=== PATIENT | female | born 1950 | race Caucasian/White ===

== ENCOUNTER → 2019-06-28 10:04 | Outpatient (BNVA) | payer MEDICARE, SELFPAY | PROVIDERS: Family Provider Internal Medicine; PCP Internal Medicine; Visit Provider Internal Medicine | DX: E11.9 Type 2 diabetes mellitus without complications (principal); E78.5 Hyperlipidemia, unspecified; I10 Essential (primary) hypertension; E55.9 Vitamin D deficiency, unspecified | CPT/HCPCS: 80053; 80061; 82306; 83036; 85025 ==

== ENCOUNTER → 2019-12-10 09:36 | Outpatient (BNVA) | payer MEDICARE, SELFPAY | PROVIDERS: Family Provider Internal Medicine; PCP Internal Medicine; Visit Provider Internal Medicine | DX: E11.65 Type 2 diabetes mellitus with hyperglycemia (principal); I10 Essential (primary) hypertension; E78.5 Hyperlipidemia, unspecified; E55.9 Vitamin D deficiency, unspecified | CPT/HCPCS: 36415; 80053; 82043; 83036; 84443; 85025 ==

== ENCOUNTER 2020-02-10 14:28 | Inpatient (IN) | payer MEDICARE, SELFPAY ==
[2020-02-10] VITALS (9 sets, daily range): BP systolic 124–143; BP diastolic 66–86; PULSE 60–95; RESP 16–20; TEMP 36.6–36.7; O2SAT 88–94; BMI 29.2
--- NOTE | 2020-02-10 15:14 | XR_ITS ---
WS: [id number] Portable AP upright chest, 02/10/2020 Clinical Data: SOB, COVID+ Comparison: PA and lateral chest, 01/27/2018. Findings: Bilateral patchy opacities are seen throughout both lungs. The density is greatest adjacent to the pleura. The heart is normal. There are no nodules or masses. No effusions are present. No pne umothorax is seen. The aortic arch shows tortuosity as does the descending aorta. XR/XR chest 1V portable [id number] Impression: Bilateral patchy opacities of the lungs most consistent with diffuse pneumonia.
--- NOTE | 2020-02-10 15:14 | ECG_ITS ---
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 Measurements Intervals [place] Rate: 75 P: 36 ME: 126 QRS: -8 QRSD: 88 T: 10 QT: 388 QTc: 434 Interpretive Statements SINUS RHYTHM NONSPECIFIC T-WAVE ABNORMALITY No previous ECG available for comparison Electronically Signed On 02-10-2020 18:21:41 CDT by Frederic Theodore M.D. [email or web address] medical [email or web address] [id number] f
--- NOTE | 2020-02-10 15:18 | ED_ITS ---
HPI - COVID General: Chief Complaint: COVID symptoms Stated Complaint: COVID +//IN COVID WR Time Seen by Provider: 02/10/20 14:45 Source: patient Mode of arrival: ambulatory Limitations: no limitations Triage information: Has fever, cough or shortness of breath . Exposure to COVID + person last 14 days History of Present Illness: HPI Narrative: Patient is a 69-year-old female who was recently diagnosed with COVID-19. The patient has complained of shortness of breath, severe weakness, loss of appetite, cough. She however thought she was getting better, but in her primary care provider's office today she was noted to be hypoxic with oxygen saturation about 84% on room air. She was also noticed to have some new abnormal lung sounds. She was therefore sent here to be seen and evaluated. MD complaint: known COVID positive COVID 19 common symptoms: positive non-productive cough, dyspnea and fatigue; negative fever(s), chills, productive cough, body aches, headache(s), throat pain, nausea or vomiting COVID Results: No Data to Display Review of Systems General: Reports: 10 or more systems reviewed and unremarkable except in HPI and below Const: Reports: fatigue and malaise; Denies: fever(s), chills or body aches Eyes: Denies: change in vision or blurry vision ENMT: Denies: throat pain, enlarged tonsils, odynophagia, hoarseness, mouth pain or swelling of lips/tongue Card: Denies: palpitations, irregular heart rhythm, edema or swelling of feet/ankles Resp: Reports: dyspnea and non-productive cough; Denies: productive cough GI: Denies: abdominal pain, nausea or vomiting : Denies: flank pain, difficulty voiding, dysuria, urinary frequency, urinary urgency or urinary hesitancy Musc: Denies: neck pain, back pain or extremity swelling Skin/Breast: Denies: rash, pruritus or erythema Neuro: Denies: headache(s), numbness in extremities or weakness in extremities Endo: Denies: polyuria, polydipsia or tired all the time Physical Exam Const: COMMON NORMALS: no acute distress, average body habitus, patient oriented x3, no limitations, healthy appearing, alert and well nourished HENMT: COMMON NORMALS: normocephalic, atraumatic and moist oral mucous membranes HEAD & SCALP: normocephalic and atraumatic Eye: COMMON NORMALS: Equal, round and reactive pupils present, EOMs intact bi laterally, conjunctivae normal and no scleral icterus CONJUNCTIVA: Yes conjunctivae normal PUPIL: Yes Equal, round and reactive pupils present Neck/C-Spine: COMMON NORMALS: no meningeal signs and no JVD Resp: COMMON NORMALS: normal respiratory effort, No retractions, No use of accessory muscles and percussion normal AUSCULTATION: rales bilateral and diffuse PERCUSSION: percussion normal Cardio: COMMON NORMALS: no JVD, regular rate, regular rhythm, S1 normal heart sound present, S2 normal heart sound present, No gallops present (Cardio), No clicks present (Cardio), No murmurs present (Cardio), No rub (Cardio) and Peripheral pulses 2+ throughout RATE: regular rate RHYTHM: regular rhythm HEART SOUNDS: S1 normal heart sound present and S2 normal heart sound present PERIPHERAL PULSES: Peripheral pulses 2+ throughout GI: COMMON NORMALS: Normal to inspection, nondistended, normoactive bowel sounds present, Soft to palpation, non-tender, No hepatosplenomegaly present, no masses and no bruits PALPATION: Yes Soft to palpation and Yes No he patosplenomegaly present Extremity: COMMON NORMALS: normal to inspection, full ROM, capillary refill normal, no calf tenderness and no pedal edema Neuro: COMMON NORMALS: patient oriented x3 SENSORIUM/ORIENTATION: Yes alert MENINGEAL SIGNS: Yes no meningeal signs Skin: COMMON NORMALS: no rashes or lesions noted, no wounds, turgor normal, no jaundice, no petechiae and no mottling GENERAL SKIN EXAM: no rashes or lesions noted and turgor normal Course ED course: Patient with hypoxia secondary to covid pneumonia. She oxygenated well on 3lpm of oxygen. She is admitted to further evaluation and management. Consultations: Consultation #1: Dr. Reagan, hospitalist. He kindly accepted the patient to his service. Time: 17:20 Vital Signs: Vital signs: Vital Signs Temperature 98.0 F 02/10/20 14:40 Pulse Rate 74 02/10/20 18:32 Respiratory Rate 20 H 02/10/20 18:32 Blood Pressure 133/78 02/10/20 18:32 Pulse Oximetry 92 02/10/20 18:32 MDM - COVID MDM Narrative Medical decision making narrative: Patient with COVID pneumonia and hypoxia. She is admitted to the hospital for further evaluation and management. Differential Diagnosis Differential diagnosis: Likely COVID 19 and pneumonia Medical Records Attestation: I reviewed the patient's medical records. Lab Data Attestation: I reviewed the patient's lab results. Result diagrams: 02/10/20 15:35 02/10/20 15:35 Labs: Lab Results 02/10/20 02/10/20 02/10/20 Range/Units 15:35 15:35 15:35 WBC 9.1 (4.0-10.0) 10^3/uL RBC 4.41 (4.1-5.3) 10^6/uL Hgb 12.8 (11.5-15.3) g/dL Hct 38.8 (37.0-47.0) % MCV 88.0 (81-99) fL MCH 29.0 (28.0-34.0) pg MCHC 33.0 (30.0-36.0) g/dL RDW 12.5 (12.1-15.1) % Plt Count 432 H (130-400) 10^3/cmm MPV 10.0 (7.4-10.4) fL Neut % (Auto) 72.5 % Lymph % (Auto) 16.8 % Traverse % (Auto) 9.7 % Eos % (Auto) 0.0 % Baso % (Auto) 0.2 % Neut # (Auto) 6.62 (1.8-7.7) 10^3/uL Lymph # (Auto) 1.5 (0.8-4.8) 10^3/uL Traverse # (Auto) 0.9 (0.2-0.9) 10^3/uL Eos # (Auto) 0.0 (0.0-0.8) 10^3/uL Baso # (Auto) 0.0 (0.0-0.1) 10^3/uL Nucleated RBC % (auto) 0 % Nucleated RBCs # 0.0 /100WBC PT 14.90 (12.1-14.9) SECONDS INR 1.14 (0.8-1.2) Fibrinogen 754 H (174-498) mg/dL D-Dimer 2.84 H (0-0.59) ug/mIFEU Sodium 132 L (136-145) mmol/L Potassium 3.9 (3.5-5.1) mmol/L Chloride 96 L (98-107) mmol/L Carbon Dioxide 23 (22-29) mmol/L Anion Gap 16.9 (5-19) BUN 8 (8-23) mg/dL Creatinine 0.4 L (0.5-0.9) mg/dL GFR Calculation 157.8 H (90-130) mL/min Glucose 186 H (65-115) mg/dL Calculated Osmolality 277 L (285-295) mOsm/kg Lactic Acid (0.5-2.2) mmol/L Calcium 8.7 (8.5-10.5) mg/dL Total Bilirubin 0.6 (0.15-1.2) mg/dL AST 21 (0-32) U/L ALT 18 (0-33) U/L Alkaline Phosphatase 76 (35-105) IU/L Lactate Dehydrogenase 271 H (135-214) U/L Creatine Kinase 29 (26-192) U/L Troponin T Gen 5 ng/L (0-10) ng/L C-Reactive Protein 117.4 H (0.0-4.9) mg/L Total Protein 6.5 L (6.6-8.7) g/dL Albumin 2.7 L (3.5-5.2) g/dL Globulin 3.8 (1.3-4.6) g/dL Influenza Type A Ag (Negative) Influenza Type B Ag (Negative) 02/10/20 02/10/20 02/10/20 Range/Units 15:35 15:35 16:35 WBC (4.0-10.0) 10^3/uL RBC (4.1-5.3) 10^6/uL Hgb (11.5-15.3) g/dL Hct (37.0-47.0) % MCV (81-99) fL MCH (28.0-34.0) pg MCHC (30.0-36.0) g/dL RDW (12.1-15.1) % Plt Count (130-400) 10^3/cmm MPV (7.4-10.4) fL Neut % (Auto) % Lymph % (Auto) % Traverse % (Auto) % Eos % (Auto) % Baso % (Auto) % Neut # (Auto) (1.8-7.7) 10^3/uL Lymph # (Auto) (0.8-4.8) 10^3/uL Traverse # (Auto) (0.2-0.9) 10^3/uL Eos # (Auto) (0.0-0.8) 10^3/uL Baso # (Auto) (0.0-0.1) 10^3/uL Nucleated RBC % (auto) % Nucleated RBCs # /100WBC PT (12.1-14.9) SECONDS INR (0.8-1.2) Fibrinogen (174-498) mg/dL D-Dimer (0-0.59) ug/mIFEU Sodium (136-145) mmol/L Potassium (3.5-5.1) mmol/L Chloride (98-107) mmol/L Carbon Dioxide (22-29) mmol/L Anion Gap (5-19) BUN (8-23) mg/dL Creatinine (0.5-0.9) mg/dL GFR Calculation (90-130) mL/min Glucose (65-115) mg/dL Calculated Osmolality (285-295) mOsm/kg Lactic Acid 1.7 (0.5-2.2) mmol/L Calcium (8.5-10.5) mg/dL Total Bilirubin (0.15-1.2) mg/dL AST (0-32) U/L ALT (0-33) U/L Alkaline Phosphatase (35-105) IU/L Lactate Dehydrogenase (135-214) U/L Creatine Kinase (26-192) U/L Troponin T Gen 5 ng/L 6 (0-10) ng/L C-Reactive Protein (0.0-4.9) mg/L Total Protein (6.6-8.7) g/dL Albumin (3.5-5.2) g/dL Globulin (1.3-4.6) g/dL Influenza Type A Ag Negative (Negative) Influenza Type B Ag Negative (Negative) COVID Results: No Data to Display Imaging Data CXR: Attestation: I personally reviewed and interpreted this imaging study as follows: Radiologist's impression: [address] [address] XRay Report Signed Patient: Adi Reynoso #: [id number] : 1950Acct#:[id number] Age/Sex: 69 / FADM Date: 02/10/20 Loc: ERRoom/Bed: Attending Dr: Ordering Provider/Ordering MD: Jin Lopez MD, [facility] Date of Service: 02/10/20 Procedure(s): XR chest 1V portable [id number] Accession Number(s): [id number] Report Number: [id number] WS: [id number] Portable AP upright chest, 02/10/2020 Clinical Data: SOB, COVID+ Comparison: PA and lateral chest, 01/27/2018. Findings: Bilateral patchy opacities are seen throughout both lungs. The density is greatest adjacent to the pleura. The heart is normal. There are no nodules or masses. No effusions are present. No pneumothorax is seen. The aortic arch shows tortuosity as does the descending aorta. XR/XR chest 1V portable [id number] Impression: Bilateral patchy opacities of the lungs most consistent with diffuse pneumonia. Dictated By:Anna Marley MD Signed By:Anna Marley MDSigned Date/Time:02/10/20 1554 DD/ 1552 Discharge Plan Discharge Patient Disposition: Admitted As Inpatient Admit Provider: Shay Reagan Clinical Impression: Pneumonia due to COVID-19 virus, Hypoxia Condition: Stable Interventions: ED Discharge Assessment Last Done: 02/10/20 18:32 ED Charges Last Done: 02/10/20 18:32 Discharge Date/Time: 02/10/20 18:51 Coding Level of Care Code ED Hotel Reservationist for Chg Fwd Exam Comprehensive
[2020-02-10 16:16] LABS: Basophils % 0.2 %; Hematocrit 38.8 % (37.0-47.0); Hemoglobin 12.8 g/dL (11.5-15.3); Lymphocytes # 1.5 10^3/uL (0.8-4.8); Lymphocytes % 16.8 %; Monocytes # 0.9 10^3/uL (0.2-0.9); Monocytes % 9.7 %; Neutrophils # 6.62 10^3/uL (1.8-7.7); Neutrophils % 72.5 %; Nucleated Red Blood Cells % 0 %; Platelet Count 432 10^3/cmm (130-400); Red Blood Count 4.41 10^6/uL (4.1-5.3); Red Cell Distribution Width 12.5 % (12.1-15.1); White Blood Count 9.1 10^3/uL (4.0-10.0)
[2020-02-10 16:36] LABS: Lactic Sepsis W/Reflex 1.7 mmol/L (0.5-2.2)
[2020-02-10 16:37] LABS: Alanine Aminotransferase 18 U/L (0-33); Albumin Level 2.7 g/dL (3.5-5.2); Alkaline Phosphatase 76 IU/L (35-105); Aspartate Amino Transferase 21 U/L (0-32); Blood Urea Nitrogen 8 mg/dL (8-23); C Reactive Protein 117.4 mg/L (0.0-4.9); Calcium 8.7 mg/dL (8.5-10.5); Carbon Dioxide 23 mmol/L (22-29); Chloride 96 mmol/L (98-107); Creatine Phosphokinase 29 U/L (26-192); Globulin 3.8 g/dL (1.3-4.6); Glomerular Filtration Rate 157.8 mL/min (90-130); Glucose 186 mg/dL (65-115); Osmolality Calculated 277 mOsm/kg (285-295); Sodium 132 mmol/L (136-145); Total Bilirubin 0.6 mg/dL (0.15-1.2); Total Protein 6.5 g/dL (6.6-8.7)
[2020-02-10 16:38] LABS: Troponin T (5th) Once 6 ng/L (0-10)
[2020-02-10 16:43] LABS: Fibrinogen 754 mg/dL (174-498); INR 1.14 (0.8-1.2)
[2020-02-10 16:47] LABS: D Dimer 2.84 ug/mIFEU (0-0.59)
[2020-02-10] MEDS: dexamethasone 4 mg/mL INJ 6 MG IVP (16:47)
[2020-02-10 16:48] LABS: Anion Gap 16.9 (5-19); Lactate Dehydrogenase 271 U/L (135-214); Potassium 3.9 mmol/L (3.5-5.1)
[2020-02-10 17:01] LABS: Influenza A by IFA Negative (Negative); Influenza B by IFA Negative (Negative)
--- NOTE | 2020-02-10 18:10 | CTR_ITS ---
PROCEDURE INFORMATION: Exam: CT Chest Without Contrast Exam date and time: 02/10/2020 6:27 PM Age: 69 years old Clinical indication: Shortness of breath; Prior surgery; Surgery type: Gb; Additional info: Worseing SOB TECHNIQUE: Imaging protocol: Computed tomography of the chest without contrast. Radiation optimization: All CT scans at this facility use at least one of these dose optimization techniques: automated exposure control; mA and/or kV adjustment per patient size (includes targeted exams where dose is matched to clinical indication); or iterative reconstruction. COMPARISON: CT chest con [id number] 09/17/2018 3:01 PM RADIATION DOSE METRICS: Total DLP (mGy-cm): 868.3 FINDINGS: Lungs: Dense peripheral ground-glass and airspace consolidations throughout both lungs. Calcified granuloma in the left lower lobe. Pleural space: Unremarkable. No pneumothorax. No pleural effusion. Heart: Unremarkable. No cardiomegaly. No pericardial effusion. Aorta: Unremarkable. No aortic aneurysm. Lymph nodes: Subcentimeter mediastinal lymph nodes are most likely reactive. Gallbladder and bile ducts: Cholecystectomy. Bile ducts are normal. Bones/joints: Mild scoliosis and degenerative changes of the spine. No compression fracture. Soft tissues: Unremarkable. CT/CT chest [facility] [address] IMPRESSION: 1. Peripheral multilobar pneumonia. This pattern is typical for COVID-19 pneumonia but can also be seen in influenza pneumonia and organizing pneumonia. Radiation Dose CTDIVOL = (mGy): DLP = 868.3 (mGy-cm)
--- NOTE | 2020-02-10 18:25 | PM.HP ---
Providers/Chief Complaint Admitting Physician: Shay Reagan MD Primary Care Provider: Sonali Bolton MD Chief Complaint: COVID + History of Present Illness Tess Reynoso is a 69 year old female with past medical history of diabetes and hypertension was diagnosed with Covid 19 10 days back, was receiving treatment from her primary care physician, she had kept her on dexamethasone oral, to which she did not responded well, her symptoms were progressively worsening, she was experiencing extreme fatigue, progressively worsening shortness of breath, severe headache, nausea, subjective fever, cough. She denies any chest pain, loss of taste, loss of smell, loss of appetite, any urinary complaint, constipation, diarrhea. In the ER: She was saturating well on 2 L oxygen, x-ray chest was done: Lactic acid:1.7, D-dimer: 2.84, baseline troponin: 6, Fibrinogen: 754, LDH 271. Influenza a and B: Negative. EKG: SINUS RHYTHM, with nonspecific ST-T changes. Review of Systems General: Reports: 10 or more systems reviewed and unremarkable except in HPI and below Const: Denies: change in appetite or diaphoresis Card: Denies: palpitations, edema, swelling of feet/ankles, dyspnea on exertion, orthopnea or leg pain with exertion Resp: Denies: wheezing or pain on inspiration GI: Denies: abdominal pain, diarrhea or constipation : Denies: flank pain Musc: Denies: back pain, extremity pain or extremity swelling Neuro: Denies: headache(s), difficulty walking or confusion Medications/Allergies Allergies Allergy/AdvReac Type Severity Reaction Status Date / Time povidone-iodine AdvReac Mild rash Verified 06/28/19 09:56 [From Betadine] soap [From Betadine] AdvReac Mild rash Verified 06/28/19 09:56 Vitals/I&O/Wt Last Vital Signs Temp 98.0 F 02/10/20 14:40 Pulse 95 02/10/20 17:30 Resp 16 02/10/20 14:40 BP 137/86 02/10/20 17:30 Pulse Ox 94 02/10/20 17:30 Weight last 48 hrs Weight 77.111 kg Physical Exam Const: COMMON NORMALS: patient oriented x3 HENMT: COMMON NORMALS: normocephalic, atraumatic, hearing grossly normal bilaterally and external ears normal HEAD & SCALP: normocephalic and atraumatic EXTERNAL EAR: Yes external ears normal Eye: COMMON NORMALS: no scleral icterus GENERAL EYE: appearance normal, both eyes and all related structures Chest: COMMONS NORMALS: normal inspection of the chest and normal palpation of entire chest wall CHEST: Yes Symmetrical chest wall rise Resp: COMMON NORMALS: normal respiratory effort, No retractions, No use of accessory muscles and clear to auscultation bilaterally EFFORT & INSPECTION: Yes symmetric chest movement OTHER: Bilateral crackles present in both lung almaraz, no wheezing no rhonchi Cardio: COMMON NORMALS: regular rate, regular rhythm, S1 normal heart sound present, S2 normal heart sound present, No gallops present (Cardio), No murmurs present (Cardio), No rub (Cardio) and Peripheral pulses 2+ throughout RATE: regular rate RHYTHM: regular rhythm HEART SOUNDS: S1 normal heart sound present and S2 normal heart sound present PERIPHERAL PULSES: Peripheral pulses 2+ throughout GI: COMMON NORMALS: Normal to inspection, nondistended, normoactive bowel sounds present, Soft to palpation, non-tender, No hepatosplenomegaly present and no masses AUSCULTATION: Yes normoactive bowel sounds PALPATION: Yes Soft to palpation and Yes No hepatosplenomegaly present RECTAL EXAM: deferred Extremity: COMMON NORMALS: no clubbing, cyanosis or edema and no pedal edema Neuro: COMMON NORMALS: patient oriented x3 Data : 02/10/20 15:35 02/10/20 15:35 Micro: Microbiology 02/10/20 15:35 Blood Culture - Preliminary Blood SPECIMEN COLLECTED 02/10/20 15:35 Blood Culture - Preliminary Blood SPECIMEN COLLECTED A&P Assessment and plan (1) Pneumonia due to COVID-19 virus: Continue Remdesevir Continue Dexamethasone Continue Van,Zosyn and Azith Trend Cytokine pedro inflammatory marker ( ESR,CRP,Ferritin,Ddimer,IL6 ) Currently not on full anticog. Continue Lovenox [address] chest without contrast Neb Status: Acute (2) Diabetes: MDSSI Monitor FSG Diabetic Diet Status: Acute (3) HTN (hypertension): Amlodipine 5 mg oral daily Status: Acute Additional A&P Information #Ac hypoxic R.F 2/2 COVID PNA with possible superimposed bacterial/Atypical PNA: Continue Remdesevir Continue Dexamethasone Continue Van,Zosyn and Azith Trend Cytokine pedro inflammatory marker ( ESR,CRP,Ferritin,Ddimer,IL6 ) Currently not on full anticog. Continue Lovenox [address] chest without contrast Neb Supplemental oxygen as needed maintain saturation greater than 90%. #DVT PPX:Lovenox 40 mg sc daily #Code Status :Full Code Attestations Medical Necessity Statement*: Patient is to be in hospital for management of COVID-19 pneumonia .A 2 midnight stays is expected. Coding Level of Care Code Acute Director Of Casework for g Fwd Diagnoses Pneumonia due to COVID-19 virus U07.1; J12.89 Diabetes E11.9 HTN (hypertension) I10
[2020-02-10] MEDS: vancomycin 1,000 MG in sodium chloride 0.9% 250 ML 250 MG IV ×2 (20:13→22:00)
[2020-02-10] MEDS: FUROsemide 10 mg/mL SDV 4mL 40 MG IVP (20:28)
[2020-02-10] MEDS: enoxaparin 40 mg/0.4 mL Syringe SUBCUT (20:29)
[2020-02-10] MEDS: pantoprazole 40 mg SDV IVP (20:29)
[2020-02-10] MEDS: albuterol 8 gm MDI 2 PUFF INHALATION (21:20)
[2020-02-10 21:29] LABS: Glucose Point of Care 368 mg/dL (70-110)
[2020-02-10] MEDS: azithromycin 500 MG in sodium chloride 0.9% 250 ML 250 MG IV (21:55)
[2020-02-11] VITALS (13 sets, daily range): BP systolic 128–150; BP diastolic 63–78; PULSE 62–81; RESP 16–26; TEMP 36.4–36.8; O2SAT 86–94
[2020-02-11] MEDS: piperacillin-tazobactam 3.375 GM in sodium chloride 0.9% (plus) 50 ML IV ×3 (00:46→16:56)
[2020-02-11 03:46] LABS: ABG PCO2 34.9 mmHg (35-45); ABG PH Result 7.48 (7.35-7.45); Alveolar-Arterial Oxygen Gradi 6.9 mmHg (5-10); Arterial Blood Gas Hematocrit 39.1 % (37-47); Base Excess ABG 2.3 mmol/L (-2.0-2.0); Blood Gas Allen Test Pos; Blood Gas Operator Identificat HARKR; Blood Gas Sample Site Brachial, right; Blood Gas Sample Type Arterial; Carboxyhemoglobin 0.8 %THgb (0.4-20.1); HCO3 ABG 25.6 mmol/L (22-26); HGB O2 Sat 87.3 % (95-100); Ionized Calcium Level - ABG 1.2 mmol/L (1.1-1.4); Methemoglobin 0.7 % (0.4-1.5); Oxygen Saturation ABG 88.7; Potassium Level - ABG 3.8 mmol/L (3.5-5.0); Total Hemoglobin 12.8 g/dL (12-16)
[2020-02-11 03:47] LABS: Oxygen Device ROOM AIR
[2020-02-11 05:27] LABS: Basophils % 0.2 %; Hematocrit 39.2 % (37.0-47.0); Hemoglobin 13.1 g/dL (11.5-15.3); Lymphocytes # 0.9 10^3/uL (0.8-4.8); Lymphocytes % 19.9 %; Mean Corpuscular HGB Conc 33.4 g/dL (30.0-36.0); Mean Corpuscular Hemoglobin 28.7 pg (28.0-34.0); Mean Corpuscular Volume 85.8 fL (81-99); Mean Platelet Volume 9.8 fL (7.4-10.4); Monocytes # 0.4 10^3/uL (0.2-0.9); Monocytes % 9.1 %; Neutrophils # 3.24 10^3/uL (1.8-7.7); Neutrophils % 69.9 %; Nucleated Red Blood Cells % 0 %; Platelet Count 507 10^3/cmm (130-400); Red Blood Count 4.57 10^6/uL (4.1-5.3); Red Cell Distribution Width 12.4 % (12.1-15.1); White Blood Count 4.6 10^3/uL (4.0-10.0)
[2020-02-11 05:34] LABS: Add Urine Microscopic? NO
[2020-02-11 06:13] LABS: NT Pro B Type Natriuretic Pept 526 pg/mL (0-125); Procalcitonin 0.07 ng/mL (0-0.5)
[2020-02-11 06:20] LABS: Bilirubin Urine Neg (Negative); Blood Urine Neg (Negative); Glucose Urine UA 4+ (Normal); Ketones Urine 1+ (Negative); Leukocyte Esterase Urine Negative (Negative); Nitrate Urine Negative (Negative); Protein Urine Neg (Negative); Urine Appearance Clear (CLEAR); Urine Color Yellow (Yellow); Urobilinogen Urine Norm (Negative); pH Urine 5 (5-7)
[2020-02-11 06:21] LABS: Alanine Aminotransferase 19 U/L (0-33); Albumin Level 2.9 g/dL (3.5-5.2); Alkaline Phosphatase 82 IU/L (35-105); Anion Gap 16.4 (5-19); Aspartate Amino Transferase 17 U/L (0-32); Blood Urea Nitrogen 12 mg/dL (8-23); Calcium 8.9 mg/dL (8.5-10.5); Carbon Dioxide 25 mmol/L (22-29); Chloride 99 mmol/L (98-107); Glomerular Filtration Rate 157.8 mL/min (90-130); Glucose 294 mg/dL (65-115); Magnesium 1.8 mg/dL (1.7-2.3); Osmolality Calculated 293 mOsm/kg (285-295); Phosphorus 3.5 mg/dL (2.5-4.5); Potassium 4.4 mmol/L (3.5-5.1); Sodium 136 mmol/L (136-145); Thyroid Stimulating Hormone 0.19 uIU/mL (0.27-4.20); Total Bilirubin 0.5 mg/dL (0.15-1.2); Total Protein 5.9 g/dL (6.6-8.7)
[2020-02-11 06:39] LABS: Glucose Point of Care 244 mg/dL (70-110)
[2020-02-11] MEDS: albuterol 8 gm MDI 2 PUFF INHALATION ×2 (09:34→20:27)
[2020-02-11] MEDS: FUROsemide 10 mg/mL SDV 4mL 40 MG IVP (10:12)
[2020-02-11] MEDS: vancomycin 1,000 MG in sodium chloride 0.9% 250 ML 250 MG IV ×2 (10:20→23:27)
[2020-02-11 11:22] LABS: Glucose Point of Care 392 mg/dL (70-110)
--- NOTE | 2020-02-11 11:40 | P.PN_ITS ---
Subjective Subjective: Interval history: Patient supplemental oxygen requirement has gone up. She is requiring 5 to 6 L of oxygen via nasal cannula to maintain a saturation greater then 90%. She has remained afebrile. R.R : 18-26 , H/R : 60- 82 , blood pressure is well controlled. Medications: Reviewed: Yes Vitals/I&O/Wt Last Vital Signs Temp 97.6 F 02/11/20 11:27 Pulse 71 02/11/20 11:27 Resp 18 02/11/20 11:27 BP 136/63 02/11/20 11:27 Pulse Ox 90 02/11/20 11:27 02/10/20 02/11/20 02/11/20 22:59 06:59 14:59 Intake Total 360 / 360 300 / 660 240 / 240 Output Total 900 / 900 1000 / 1000 Balance 360 / 360 -600 / -240 -760 / -760 Weight last 48 hrs Weight 78.67 kg Weight 77.111 kg Physical Exam Const: COMMON NORMALS: patient oriented x3 HENMT: COMMON NORMALS: normocephalic, atraumatic, hearing grossly normal bilaterally and external ears normal HEAD & SCALP: normocephalic and atraumatic EXTERNAL EAR: Yes external ears normal Eye: COMMON NORMALS: no scleral icterus GENERAL EYE: appearance normal, both eyes and all related structures Chest: COMMONS NORMALS: normal inspection of the chest and normal palpation of entire chest wall CHEST: Yes Symmetrical chest wall rise Resp: EFFORT & INSPECTION: Yes symmetric chest movement, Yes respiratory distress and Yes labored OTHER: Bilateral crackles present in both lung Rojas, slightly improved since yesterday Cardio: COMMON NORMALS: regular rate, regular rhythm, S1 normal heart sound present, S2 normal heart sound present, No gallops present (Cardio), No murmurs present (Cardio), No rub (Cardio) and Peripheral pulses 2+ throughout RATE: regular rate RHYTHM: regular rhythm HEART SOUNDS: S1 normal heart sound present and S2 normal heart sound present PERIPHERAL PULSES: Peripheral pulses 2+ throughout GI: COMMON NORMALS: Normal to inspection, nondistended, normoactive bowel sounds present, Soft to palpation, non-tender, No hepatosplenomegaly present and no masses AUSCULTATION: Yes normoactive bowel sounds PALPATION: Yes Soft to palpation and Yes No hepatosplenomegaly present RECTAL EXAM: deferred Extremity: COMMON NORMALS: no clubbing, cyanosis or edema and no pedal edema Neuro: COMMON NORMALS: patient oriented x3 Data : 02/12/20 04:50 02/12/20 04:50 Micro: Microbiology 02/10/20 15:35 Blood Culture - Preliminary Blood SPECIMEN COLLECTED 02/10/20 15:35 Blood Culture - Preliminary Blood SPECIMEN COLLECTED A&P Assessment and plan (1) Pneumonia due to COVID-19 virus: Status: Acute (2) Diabetes: MDSSI Monitor FSG Diabetic Diet Status: Acute (3) HTN (hypertension): Amlodipine 5 mg oral daily Status: Acute Additional A&P Information #Ac hypoxic R.F 2/ COVID PNA with possible superimposed bacterial/Atypical PNA: Patient oxygen requirement has continued to go up.She is currently on 5-6 L Oxygen via nc to maintain a saturation above 90 % as opposed to 3 L Yesterday. Continue Remdesevir (02/09--) Continue Dexamethasone (02/09----) Continue Van,Zosyn and Azith Trend Cytokine pedro inflammatory marker ( ESR,CRP,Ferritin,Ddimer,IL6 ) Currently not on full anticog.Continue Lovenox [address] chest without contrast: Presentation is consistent with typical COVID PNA ( Peripheral multilobar pneumonia. This pattern is typical for COVID-19 ) Continue Lasix 40 mg I.V daily I/O Charting Blood Culture : GPC 04/24 Neb Supplemental oxygen as needed maintain saturation greater than 90%. #DVT PPX:Lovenox 40 mg sc daily #Code Status :Full Code #Disposition: Home Attestations Medical Necessity Statement*: Patient needs to be in hospital for management of Covid pneumonia. Coding Level of Care Code Acute Nanoelectronics Engineer for [facility] Fwd Exam Comprehensive Diagnoses Pneumonia due to COVID-19 virus U07.1; J12.89 Diabetes E11.9 HTN (hypertension) I10
[2020-02-11 17:05] LABS: Glucose Point of Care 326 mg/dL (70-110)
[2020-02-11] MEDS: dexamethasone 4 mg/mL INJ 6 MG IVP (18:16)
[2020-02-11] MEDS: pantoprazole 40 mg SDV IVP (20:06)
[2020-02-11] MEDS: enoxaparin 40 mg/0.4 mL Syringe SUBCUT (20:06)
[2020-02-11] MEDS: FUROsemide 10 mg/mL SDV 2mL 20 MG IVP (20:06)
[2020-02-11 21:12] LABS: Glucose Point of Care 385 mg/dL (70-110)
[2020-02-11] MEDS: azithromycin 500 MG in sodium chloride 0.9% 250 ML 250 MG IV (21:46)
[2020-02-11] MEDS: insulin glargine 100 units/1 mL 10 UNIT SUBCUT (21:46)
[2020-02-11 22:23] LABS: Vancomycin Trough 5.2 ug/mL (10-15)
[2020-02-12] VITALS (123 sets, daily range): BP systolic 120–169; BP diastolic 65–96; PULSE 55–115; RESP 13–30; TEMP 36.5–37.7; O2SAT 84–99
[2020-02-12] MEDS: piperacillin-tazobactam 3.375 GM in sodium chloride 0.9% (plus) 50 ML IV ×3 (00:19→16:48)
[2020-02-12 05:38] LABS: Basophils % 0.1 %; Hematocrit 39.7 % (37.0-47.0); Hemoglobin 13.2 g/dL (11.5-15.3); Lymphocytes # 1.5 10^3/uL (0.8-4.8); Lymphocytes % 16.9 %; Mean Corpuscular HGB Conc 33.2 g/dL (30.0-36.0); Mean Corpuscular Hemoglobin 28.9 pg (28.0-34.0); Mean Corpuscular Volume 87.1 fL (81-99); Mean Platelet Volume 9.6 fL (7.4-10.4); Monocytes # 0.4 10^3/uL (0.2-0.9); Monocytes % 4.7 %; Neutrophils # 6.69 10^3/uL (1.8-7.7); Neutrophils % 77.7 %; Nucleated Red Blood Cells % 0 %; Platelet Count 598 10^3/cmm (130-400); Red Blood Count 4.56 10^6/uL (4.1-5.3); Red Cell Distribution Width 12.5 % (12.1-15.1); White Blood Count 8.6 10^3/uL (4.0-10.0)
[2020-02-12 05:58] LABS: C Reactive Protein 58.9 mg/L (0.0-4.9); Ferritin 692 ng/mL (15-150)
[2020-02-12 06:00] LABS: Alanine Aminotransferase 19 U/L (0-33); Albumin Level 3.1 g/dL (3.5-5.2); Alkaline Phosphatase 80 IU/L (35-105); Blood Urea Nitrogen 14 mg/dL (8-23); Calcium 8.8 mg/dL (8.5-10.5); Carbon Dioxide 27 mmol/L (22-29); Chloride 99 mmol/L (98-107); Globulin 3.2 g/dL (1.3-4.6); Glucose 285 mg/dL (65-115); Magnesium 1.9 mg/dL (1.7-2.3); Osmolality Calculated 293 mOsm/kg (285-295); Phosphorus 3.5 mg/dL (2.5-4.5); Sodium 136 mmol/L (136-145); Total Bilirubin 0.4 mg/dL (0.15-1.2); Total Protein 6.3 g/dL (6.6-8.7)
[2020-02-12 06:23] LABS: Anion Gap 14.6 (5-19); Aspartate Amino Transferase 18 U/L (0-32); Potassium 4.6 mmol/L (3.5-5.1)
[2020-02-12 06:39] LABS: Glucose Point of Care 267 mg/dL (70-110)
[2020-02-12 07:20] LABS: Fibrinogen 582 mg/dL (174-498)
[2020-02-12 07:24] LABS: D Dimer 1.19 ug/mIFEU (0-0.59)
[2020-02-12] MEDS: vancomycin 1,000 MG in sodium chloride 0.9% 250 ML 250 MG IV ×3 (08:07→23:49)
[2020-02-12 08:55] LABS: ABG PCO2 34.3 mmHg (35-45); ABG PH Result 7.51 (7.35-7.45); Alveolar-Arterial Oxygen Gradi 32.3 mmHg (5-10); Arterial Blood Gas Hematocrit 39.8 % (37-47); Base Excess ABG 4.7 mmol/L (-2.0-2.0); Blood Gas Allen Test Pos; Blood Gas Sample Site Radial, left; Blood Gas Sample Type Arterial; Carboxyhemoglobin 0.8 %THgb (0.4-20.1); HCO3 ABG 27.6 mmol/L (22-26); HGB O2 Sat 88.7 % (95-100); Ionized Calcium Level - ABG 1.2 mmol/L (1.1-1.4); Methemoglobin 0.7 % (0.4-1.5); Oxygen Device NC; Oxygen Saturation ABG 90.1; PO2 ABG 53.1 mmHg (80.0-100.0); Potassium Level - ABG 3.4 mmol/L (3.5-5.0)
[2020-02-12] MEDS: albuterol 8 gm MDI 2 PUFF INHALATION (09:43)
[2020-02-12] MEDS: FUROsemide 10 mg/mL SDV 4mL 40 MG IVP (11:05)
[2020-02-12] MEDS: benzonatate 100 mg Capsule PO (11:06)
[2020-02-12] MEDS: guaiFENesin-dextromethorphan UDC 10 mL 5 ML PO (11:08)
[2020-02-12 11:20] LABS: Glucose Point of Care 296 mg/dL (70-110)
--- NOTE | 2020-02-12 12:50 | PC.NURSE ---
NOTED THAT EVEN AT REST 50% OXYGEN AND 45 LITER FLOW WAS NOT SUFFICIENT TO KEEP PATIENTS SATS HIGHER THAN 85. CURRENTLY AT 65% AND 55 LITERS WITH OCCASSIONAL DROP TO 87 WITH ACTIVITY, WITNESSED THIS AND ORDERED A MATOS TO DECREASE HER DEMAND.
[2020-02-12 16:20] LABS: Glucose Point of Care 396 mg/dL (70-110)
[2020-02-12] MEDS: dexamethasone 4 mg/mL INJ 6 MG IVP (16:22)
[2020-02-12] MEDS: pantoprazole 40 mg SDV IVP (16:47)
[2020-02-12 17:42] LABS: Partial Thromboplastin Time 47.3 SECONDS (23.9-36.7)
[2020-02-12] MEDS: heparin drip 25,000 UNIT/500 ML PREMIX 24 UNIT IV (18:01)
[2020-02-12] MEDS: heparin 5,000 unit/mL INJ 1 mL IV (18:02)
--- NOTE | 2020-02-12 18:33 | PC.NURSE ---
RIGHT AC LINE WHERE HEPARIN WAS INFUSING APPEARED SWOLLEN AND WAS DIFFICULT TO FLUSH, D/ED LINE AND IT WAS INTACT. NEW SITE IN LEFT AC/FA AREA #20 STARTED ON THIRD STICK. GREAT BLOOD RETURN. CURRENT SATS ARE 96 TO 98 SO PATIENT WAS SWITCHED DOWN TO 50 50.
[2020-02-12 21:15] LABS: Glucose Point of Care 384 mg/dL (70-110)
[2020-02-12] MEDS: azithromycin 500 mg SDV (21:15)
[2020-02-12] MEDS: azithromycin 500 MG in sodium chloride 0.9% 250 ML 150 MG IV (21:20)
--- NOTE | 2020-02-12 21:55 | PM.PN ---
Subjective Subjective: Interval history: Patient was extremely short of breath this morning.Her supplemental oxygen requirement has gone up. Other vitals and labs have been reviewed. Medications: Reviewed: Yes Vitals/I&O/Wt Last Vital Signs Temp 97.7 F 02/12/20 16:00 Pulse 62 02/12/20 21:42 Resp 18 02/12/20 21:42 BP 159/72 02/12/20 18:35 Pulse Ox 97 02/12/20 21:42 02/12/20 02/12/20 02/12/20 06:59 14:59 22:59 Intake Total 410 / 1910 800 / 800 900 / 1700 Output Total 500 / 2900 1200 / 1200 1300 / 2500 Balance -90 / -990 -400 / -400 -400 / -800 Weight last 48 hrs Weight 78.562 kg Weight 78.67 kg Physical Exam Const: COMMON NORMALS: patient oriented x3 HENMT: COMMON NORMALS: normocephalic, atraumatic, hearing grossly normal bilaterally and external ears normal HEAD & SCALP: normocephalic and atraumatic EXTERNAL EAR: Yes external ears normal Eye: COMMON NORMALS: no scleral icterus GENERAL EYE: appearance normal, both eyes and all related structures Resp: EFFORT & INSPECTION: Yes symmetric chest movement, Yes tachypneic, Yes respiratory distress and Yes labored OTHER: Diffuse b/l Crackles Present in both Lung Sher. Cardio: COMMON NORMALS: regular rate, regular rhythm, S1 normal heart sound present, S2 normal heart sound present, No gallops present (Cardio), No murmurs present (Cardio), No rub (Cardio) and Peripheral pulses 2+ throughout RATE: regular rate RHYTHM: regular rhythm HEART SOUNDS: S1 normal heart sound present and S2 normal heart sound present PERIPHERAL PULSES: Peripheral pulses 2+ throughout GI: COMMON NORMALS: Normal to inspection, nondistended, normoactive bowel sounds present, Soft to palpation, non-tender, No hepatosplenomegaly present and no masses AUSCULTATION: Yes normoactive bowel sounds PALPATION: Yes Soft to palpation and Yes No hepatosplenomegaly present RECTAL EXAM: deferred Extremity: COMMON NORMALS: no clubbing, cyanosis or edema and no pedal edema Neuro: COMMON NORMALS: patient oriented x3 Urinary Catheter Management^: Kathleen: Cath Placed During This Visit: yes Urinary Catheter Date of Insertion: 02/12/20 Urinary Catheter Time of Insertion: 12:49 Data : 02/12/20 04:50 02/12/20 04:50 Micro: Microbiology 02/11/20 04:18 Urine Culture - Preliminary Urine,Clean Catch A&P Assessment and plan (1) Pneumonia due to COVID-19 virus: Status: Acute (2) Diabetes: MDSSI Monitor FSG Diabetic Diet Status: Acute (3) HTN (hypertension): Amlodipine 5 mg oral daily Status: Acute Additional A&P Information #Ac hypoxic R.F 2/ COVID PNA with possible superimposed bacterial/Atypical PNA: Patient oxygen requirement has continued to go up.She was started on HHFONC 60 % fio2 and 40L Continue Remdesevir (02/09--) Continue Dexamethasone (02/09----) On Heparin Drip Started on 02/12 Continue Van,Zosyn and Azith Trend Cytokine pedro inflammatory marker ( ESR,CRP,Ferritin,Ddimer,IL6 ) CT chest without contrast: Presentation is consistent with typical COVID PNA ( Peripheral multilobar pneumonia. 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
[2020-02-12] MEDS: insulin glargine 100 units/1 mL 10 UNIT SUBCUT (22:12)
[2020-02-12] MEDS: ipratropium-albuterol 3 mL Neb INHALATION (22:16)
[2020-02-13] VITALS (77 sets, daily range): BP systolic 90–163; BP diastolic 48–103; PULSE 47–90; RESP 7–35; TEMP 36.2–36.9; O2SAT 85–98
[2020-02-13 01:54] LABS: Partial Thromboplastin Time 120.3 SECONDS (23.9-36.7)
[2020-02-13] MEDS: piperacillin-tazobactam 3.375 GM in sodium chloride 0.9% (plus) 50 ML IV ×3 (02:16→18:30)
[2020-02-13 05:41] LABS: Basophils % 0.2 %; Hematocrit 40.5 % (37.0-47.0); Hemoglobin 13.2 g/dL (11.5-15.3); Lymphocytes # 2.1 10^3/uL (0.8-4.8); Lymphocytes % 18.3 %; Mean Corpuscular HGB Conc 32.6 g/dL (30.0-36.0); Mean Corpuscular Hemoglobin 28.8 pg (28.0-34.0); Mean Corpuscular Volume 88.4 fL (81-99); Mean Platelet Volume 9.5 fL (7.4-10.4); Monocytes # 0.7 10^3/uL (0.2-0.9); Monocytes % 5.7 %; Neutrophils # 8.73 10^3/uL (1.8-7.7); Neutrophils % 74.9 %; Nucleated Red Blood Cells % 0 %; Platelet Count 623 10^3/cmm (130-400); Red Blood Count 4.58 10^6/uL (4.1-5.3); Red Cell Distribution Width 12.4 % (12.1-15.1); White Blood Count 11.7 10^3/uL (4.0-10.0)
[2020-02-13 06:20] LABS: Alanine Aminotransferase 18 U/L (0-33); Albumin Level 2.9 g/dL (3.5-5.2); Alkaline Phosphatase 73 IU/L (35-105); Anion Gap 13.7 (5-19); Aspartate Amino Transferase 14 U/L (0-32); Blood Urea Nitrogen 13 mg/dL (8-23); Calcium 9.2 mg/dL (8.5-10.5); Carbon Dioxide 28 mmol/L (22-29); Chloride 101 mmol/L (98-107); Globulin 3.7 g/dL (1.3-4.6); Glomerular Filtration Rate 98.8 mL/min (90-130); Glucose 213 mg/dL (65-115); Magnesium 1.9 mg/dL (1.7-2.3); Osmolality Calculated 294 mOsm/kg (285-295); Phosphorus 2.4 mg/dL (2.5-4.5); Potassium 3.7 mmol/L (3.5-5.1); Sodium 139 mmol/L (136-145); Total Bilirubin 0.3 mg/dL (0.15-1.2); Total Protein 6.6 g/dL (6.6-8.7)
[2020-02-13] MEDS: heparin drip 25,000 UNIT/500 ML PREMIX 19 UNIT IV (06:42)
[2020-02-13] MEDS: vancomycin 1,000 MG in sodium chloride 0.9% 250 ML 250 MG IV ×3 (07:16→22:03)
[2020-02-13] MEDS: ipratropium-albuterol 3 mL Neb INHALATION ×2 (08:03→11:09)
[2020-02-13] MEDS: budesonide 0.5 mg/2 mL Neb INHALATION (08:06)
[2020-02-13 08:10] LABS: Glucose Point of Care 156 mg/dL (70-110)
[2020-02-13 08:32] LABS: Partial Thromboplastin Time 96.9 SECONDS (23.9-36.7)
[2020-02-13] MEDS: amlodipine 5 mg Tablet PO (09:02)
--- NOTE | 2020-02-13 09:19 | PC.NURSE ---
see heparin dosing chart for infusion rates/titrations.
[2020-02-13] MEDS: FUROsemide 10 mg/mL SDV 4mL 40 MG IVP (11:16)
[2020-02-13 11:54] LABS: Glucose Point of Care 283 mg/dL (70-110)
--- NOTE | 2020-02-13 12:59 | XRR_ITS ---
PROCEDURE INFORMATION: Exam: XR Chest, 1 View Exam date and time: 02/13/2020 2:06 PM Age: 69 years old Clinical indication: Device placement; Picc; Additional info: Picc placement (will call to vicu when ready) TECHNIQUE: Imaging protocol: XR of the chest Views: 1 view. COMPARISON: CT chest wo con [id number] 02/10/2020 7:23 PM FINDINGS: Tubes, catheters and devices: A right PICC line extends into the SVC. Lungs: Interstitial densities are seen in the bilateral upper lobes consistent with chronic interstitial lung disease Pleural space: Unremarkable. No pleural effusion. No pneumothorax. Heart/Mediastinum: Unremarkable. No cardiomegaly. Bones/joints: Unremarkable. XR/XR chest 1V portable [id number] IMPRESSION: 1. Chronic interstitial lung disease in the bilateral upper lobes 2. Right side PICC line in the proximal SVC 3. Otherwise negative examination
--- NOTE | 2020-02-13 14:27 | DCPLANNER ---
Pt is now on highflow 02, chose not to try to talk with her or family about the IM. We will have time to explain it however want to be sensitive to pt's condition at this time.
[2020-02-13 15:45] LABS: Vancomycin Trough 12.5 ug/mL (10-15)
--- NOTE | 2020-02-13 16:17 | ECG_ITS ---
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 Measurements Intervals [place] Rate: 54 P: 42 RI: 156 QRS: -21 QRSD: 88 T: -6 QT: 432 QTc: 412 Interpretive Statements SINUS BRADYCARDIA BORDERLINE LEFT AXIS DEVIATION [QRS AXIS < -20] NONSPECIFIC T-WAVE ABNORMALITY Compared to ECG 02/10/2020 15:35:40 Sinus rhythm no longer present T-wave abnormality still present Electronically Signed On 02-15-2020 7:40:07 CDT by Emily Duff M.D. [email or web address]
[2020-02-13 16:37] LABS: Glucose Point of Care 342 mg/dL (70-110)
--- NOTE | 2020-02-13 16:43 | USCV_ITS ---
Tess Reynoso Age: 69 Gender: F : 1950 Exam Date: 02/13/2020 17:59 Ordering Phys: Shay Reagan MD Technologist: Carole Vidal Exam Location: [facility] [place] Indication: LOW O2 DVT HISTORY: DVT. PROCEDURES: The venous duplex Doppler examination of both lower extremities was performed in the standard fashion. The following venous structures were evaluated: common femoral vein, profunda vein, proximal portion of the greater saphenous vein, superficial femoral vein, and the popliteal vein. In addition, the posterior tibial and peroneal trunk were evaluated. FINDINGS: Normal 2-D Doppler and augmentation and compressibility throughout the lower extremity venous structures. Additional imaging through the proximal calf veins also reveals no thrombus. Limited evaluation of the greater saphenous vein is patent with no thrombus. CONCLUSIONS No DVT bilateral lower extremities. Dr. Linda Wick DO (Electronically Signed) Final Date: 14 February 2020 08:28 S
--- NOTE | 2020-02-13 16:47 | PC.RESP ---
Nurse stated that patient was down. Therapist went to room and by the time patient got to the bed sats were 80% on 3LPM NC. Therapist placed patient back on the high flow of 45L 50% to bring patient back up. Patient sats were 96% on it. Therapist titrated back down to nasal cannula of 3LPM, sats are 95% and holding.
[2020-02-13 17:02] LABS: Troponin T (5th) Once 6 ng/L (0-10)
[2020-02-13 17:33] LABS: Glucose Point of Care 312 mg/dL (70-110)
--- NOTE | 2020-02-13 18:28 | PM.PN ---
Subjective Subjective: Interval history: Patient supplemental oxygen requirement has gown down.Her SOB has improved. Vitals and Labs Reviewed. Medications: Reviewed: Yes Vitals/I&O/Wt Last Vital Signs Temp 97.9 F 02/13/20 04:00 Pulse 82 02/13/20 17:30 Resp 23 H 02/13/20 17:30 BP 116/64 02/13/20 17:30 Pulse Ox 90 02/13/20 17:30 02/13/20 02/13/20 02/13/20 06:59 14:59 22:59 Intake Total 778.4 / 3028.4 626.250 / 626.250 235 / 861.250 Output Total 750 / 3250 2400 / 2400 600 / 3000 Balance 28.4 / -221.6 -1773.750 / -1773.750 -365 / -2138.750 Weight last 48 hrs Weight 80.513 kg Weight 78.562 kg Physical Exam Const: COMMON NORMALS: patient oriented x3 HENMT: COMMON NORMALS: normocephalic, atraumatic, hearing grossly normal bilaterally and external ears normal HEAD & SCALP: normocephalic and atraumatic EXTERNAL EAR: Yes external ears normal Eye: COMMON NORMALS: no scleral icterus GENERAL EYE: appearance normal, both eyes and all related structures Chest: COMMONS NORMALS: normal inspection of the chest and normal palpation of entire chest wall CHEST: Yes Symmetrical chest wall rise Resp: COMMON NORMALS: normal respiratory effort, No retractions, No use of accessory muscles and clear to auscultation bilaterally EFFORT & INSPECTION: Yes symmetric chest movement AUSCULTATION: clear to auscultation bilaterally OTHER: Diffuse b/l Crackles Present in both Lung Sher. Cardio: COMMON NORMALS: regular rate, regular rhythm, S1 normal heart sound present, S2 normal heart sound present, No gallops present (Cardio), No murmurs present (Cardio), No rub (Cardio) and Peripheral pulses 2+ throughout RATE: regular rate RHYTHM: regular rhythm HEART SOUNDS: S1 normal heart sound present and S2 normal heart sound present PERIPHERAL PULSES: Peripheral pulses 2+ throughout GI: COMMON NORMALS: Normal to inspection, nondistended, normoactive bowel sounds present, Soft to palpation, non-tender, No hepatosplenomegaly present and no masses AUSCULTATION: Yes normoactive bowel sounds PALPATION: Yes Soft to palpation and Yes No hepatosplenomegaly present RECTAL EXAM: deferred Extremity: COMMON NORMALS: no clubbing, cyanosis or edema and no pedal edema Neuro: COMMON NORMALS: patient oriented x3 Urinary Catheter Management^: Kathleen: Cath Placed During This Visit: yes Reason for Continuing Indwelling Catheter: Accurate Measurement of Urinary Output in Critically Ill Patients Urinary Catheter Date of Insertion: 02/12/20 Urinary Catheter Time of Insertion: 12:49 Data : 02/14/20 03:30 02/13/20 04:30 Micro: Microbiology 02/11/20 04:18 Urine Culture - Final Urine,Clean Catch A&P Assessment and plan (1) Pneumonia due to COVID-19 virus: Status: Acute (2) Diabetes: Lantus:15 Aspart 7 premeal MDSSI Monitor FSG Diabetic Diet Status: Acute (3) HTN (hypertension): Amlodipine 5 mg oral daily Status: Acute Additional A&P Information #Ac hypoxic R.F 2/2 COVID PNA with possible superimposed bacterial/Atypical PNA: Patient oxygen requirement has improved.She is on HHFONC goal is maintain spo2:.90 % Continue Remdesevir (02/09--) Continue Dexamethasone (02/09----) On lovenox 80 sc q12 h daily Continue Van,Zosyn and Azith Trend Cytokine pedro inflammatory marker ( ESR,CRP,Ferritin,Ddimer,IL6 ) CT chest without contrast: Presentation is consistent with typical COVID PNA ( Peripheral multilobar pneumonia. This pattern is typical for COVID-19 ) Continue Lasix as needed I/O Charting Blood Culture : GPC 04/24 Neb Monitor ABG Serial xray chest #Syncope:Patient had an episode of syncope at aroung 4 pm while standing near her washbasin , likely vasovagal. 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
[2020-02-13] MEDS: pantoprazole 40 mg SDV IVP (18:32)
[2020-02-13] MEDS: dexamethasone 4 mg/mL INJ 6 MG IVP (18:32)
[2020-02-13] MEDS: albuterol 8 gm MDI 2 PUFF INHALATION (20:13)
[2020-02-13 20:42] LABS: Glucose Point of Care 351 mg/dL (70-110)
[2020-02-13] MEDS: enoxaparin 80 mg/0.8 mL Syringe SUBCUT (20:55)
[2020-02-13] MEDS: azithromycin 500 MG in sodium chloride 0.9% 250 ML 150 MG IV (22:02)
[2020-02-13] MEDS: insulin glargine 100 units/1 mL 15 UNIT SUBCUT (22:31)
[2020-02-14] VITALS (38 sets, daily range): BP systolic 121–177; BP diastolic 53–88; PULSE 53–92; RESP 0–28; TEMP 36.6–37.2; O2SAT 89–97
[2020-02-14] MEDS: piperacillin-tazobactam 3.375 GM in sodium chloride 0.9% (plus) 50 ML IV ×3 (02:54→17:54)
[2020-02-14 04:30] LABS: Platelet Count 538 10^3/cmm (130-400)
[2020-02-14] MEDS: vancomycin 1,000 MG in sodium chloride 0.9% 250 ML 250 MG IV ×3 (07:27→22:40)
[2020-02-14 08:01] LABS: Glucose Point of Care 226 mg/dL (70-110)
[2020-02-14] MEDS: enoxaparin 80 mg/0.8 mL Syringe SUBCUT ×2 (08:09→21:23)
[2020-02-14] MEDS: amlodipine 5 mg Tablet PO (08:09)
[2020-02-14] MEDS: albuterol 8 gm MDI 2 PUFF INHALATION ×2 (08:24→20:33)
--- NOTE | 2020-02-14 09:00 | PC.NURSE ---
Pt refused Norvasc Pt stated she has been refusing her amlodipine. notified. Amlodipine tablet was opened and i wasted it the tablet in med disposal bin.
[2020-02-14 10:53] LABS: Glucose Point of Care 384 mg/dL (70-110)
--- NOTE | 2020-02-14 11:49 | P.PN_ITS ---
Subjective Subjective: Interval history: Hemodynamically stable, afebrile, noted bradycardia with heart rates in the 50s earlier this morning, now normalized. On 2 L nasal cannula. On day 5 of remdesivir. Had 1100 mL urine output overnight, for a total negative fluid balance of 2.8 L. Sitting up in bed, reports feeling better today, has been ambulatory in the room, now weaned to RA, is in good spirits overall, Luis updated. Medications: Reviewed: Yes Medication Review Details: Active Medications Generic Name Dose Route Start Last Admin Trade Name Freq PRN Reason Stop Dose Admin Acetaminophen 650 mg 02/10/20 18:12 Tylenol PO Q6H PRN Mild/Mod Pain Or Temp >/= 101 Albuterol Sulfate 2 puff 02/10/20 20:12 02/14/20 08:24 Ventolin INHALATION 2 puff Q4H.RESPIRATORY P RN Administration SHORTNESS OF DEMI TH Albuterol/Ipratrop ium 3 ml 02/12/20 21:47 02/13/20 11:09 Duoneb INHALATION 3 ml Q4H PRN Administration SHORTNESS OF DEMI TH Amlodipine Besylat e 5 mg 02/13/20 09:00 02/13/20 09:16 Norvasc PO Not Given DAILY MICHAELA Benzonatate 100 mg 02/11/20 11:47 02/12/20 11:06 Tessalon Pearls PO 100 mg TID PRN Administration COUGH Bisacodyl 10 mg 02/10/20 18:12 Dulcolax PO DAILY PRN CONSTIPATION Budesonide 0.5 mg 02/13/20 08:00 02/13/20 08:06 Pulmicort INHALATION 0.5 mg BID.RESPIRATORY S CH Administration Dexamethasone 6 mg 02/11/20 18:30 02/13/20 18:32 Decadron IVP 6 mg Q24H MICHAELA Administration Dextrose 25 ml 02/10/20 18:26 D50w IVP ONCE PRN hypoglycemia prot ocol Protocol Dextrose 50 ml 02/10/20 18:26 D50w IVP PRN PRN hypoglycemia prot ocol Protocol Enoxaparin Sodium 80 mg 02/13/20 21:00 02/14/20 08:09 Lovenox SUBCUT 80 mg Q12H MICHAELA Administration Glucagon 1 mg 02/10/20 18:26 Glucagen IM ONCE PRN Adult Acute Hypog lycemia Prot. Protocol Guaifenesin/Dextro methorphan 5 ml 02/11/20 11:46 02/12/20 11:08 Robitussin Dm Or al Liq PO 5 ml Q4H PRN Administration COUGH Hydromorphone HCl 2 mg 02/10/20 18:12 Dilaudid Tab PO Q6H PRN SEVERE PAIN remdesivir (EUA) 1 00 mg/ 100 mls @ 100 mls /hr 02/11/20 17:00 02/13/20 16:00 Sodium Chloride IV 02/14/20 17:59 100 mls/hr Q24H MICHAELA Administration Azithromycin 500 m g/ Sodium 250 mls @ 250 mls /hr 02/10/20 19:00 02/13/20 22:02 Chloride IV 150 mls/hr Q24H MICHAELA Administration Protocol Dextrose 500 mls @ 100 mls /hr 02/10/20 18:26 D5w IV ONCE PRN Adult Acute Hypog lycemia Prot Protocol Piperacillin Sod/T azobactam 50 mls @ 12.5 mls /hr 02/10/20 20:00 02/14/20 10:14 Sod 3.375 gm/ So dium Chloride IV 12.5 mls/hr Q8H MICHAELA Administration Protocol Vancomycin HCl 1,0 00 mg/ 250 mls @ 250 mls /hr 02/12/20 07:00 02/14/20 08:30 Sodium Chloride IV Infused Q8H MICHAELA Infusion Protocol Insulin Aspart 0 unit 02/10/20 21:00 02/14/20 11:32 Novolog SUBCUT 14 unit WM&BEDTIME MICHAELA Administration Protocol Insulin Aspart 7 unit 02/13/20 12:00 02/14/20 11:33 Novolog SUBCUT 7 unit TIDWM MICHAELA Administration Insulin Glargine 15 unit 02/13/20 21:00 02/13/20 22:31 Lantus SUBCUT 15 unit BEDTIME MICHAELA Administration Naloxone HCl 0.1 mg 02/10/20 18:12 Narcan IVP Q2M PRN OPIATERV Ondansetron HCl 4 mg 02/10/20 18:12 Zofran IVP Q8H PRN vomiting, or N/V if npo Pantoprazole Sodiu m 40 mg 02/10/20 19:00 10/25/20 18:32 Protonix IVP 40 mg Q24H MICHAELA Administration Fluticasone/Salmet thomas 1 puff 02/11/20 08:00 02/14/20 08:24 Advair Diskus 10 0-50 INHALATION 1 puff BID.RESPIRATORY S CH Administration povidone-iodine [From Betadine] Adverse Reaction (Mild, Verified 06/28/19 09:56) rash soap [From Betadine] Adverse Reaction (Mild, Verified 06/28/19 09:56) rash Vitals/I&O/Wt Last Vital Signs Temp 97.9 F 02/14/20 04:00 Pulse 91 02/14/20 09:00 Resp 28 H 02/14/20 09:00 BP 121/64 02/14/20 09:00 Pulse Ox 91 02/14/20 09:00 02/13/20 02/14/20 02/14/20 22:59 06:59 14:59 Intake Total 825 / 1451.250 500 / 1951.250 970 / 970 Output Total 600 / 3000 1100 / 4100 650 / 650 Balance 225 / -1548.750 -600 / -2148.750 320 / 320 Weight last 48 hrs Weight 79.464 kg Weight 80.513 kg Physical Exam Const: COMMON NORMALS: no acute distress, patient oriented x3 and alert GENERAL APPEARANCE: cooperative and comfortable ORIENTATION/CONSCIOUSNESS: Yes awake OTHER: -in good spirits, very pleasant HENMT: COMMON NORMALS: normocephalic, atraumatic, hearing grossly normal bilaterally and moist oral mucous membranes HEAD & SCALP: normocephalic and atraumatic Eye: COMMON NORMALS: Equal, round and reactive pupils present, EOMs intact bilaterally and conjunctivae normal CONJUNCTIVA: Yes conjunctivae normal PUPIL: Yes Equal, round and reactive pupils present Neck/C-Spine: COMMON NORMALS: full ROM GENERAL: Yes normal visual inspection and Yes trachea midline Resp: COMMON NORMALS: normal respiratory effort, No retractions, No use of accessory muscles and clear to auscultation bilaterally EFFORT & INSPECTION: Yes able to speak in complete sentences, Yes symmetric chest movement and Yes tachypneic AUSCULTATION: clear to auscultation bilaterally and crackles (bases) OTHER: -on RA Cardio: COMMON NORMALS: regular rate, regular rhythm, S1 normal heart sound present, S2 normal heart sound present and No murmurs present (Cardio) RATE: regular rate RHYTHM: regular rhythm HEART SOUNDS: S1 normal heart sound present and S2 normal heart sound present GI: COMMON NORMALS: Normal to inspection, nondistended, normoactive bowel sounds present, Soft to palpation and non-tender PALPATION: Yes Soft to palpation Extremity: COMMON NORMALS: normal to inspection, full ROM, no clubbing, cyanosis or edema and no pedal edema Neuro: COMMON NORMALS: patient oriented x3, moves all extremities, no focal motor deficits, no sensory deficits noted and gait normal SENSORIUM/ORIENTATION: Yes alert Psych: COMMON NORMALS: mental status grossly normal, Normal thought process present, cooperative, normal affect and speech normal SPEECH: Yes normal speech THOUGHT PROCESS: Normal thought process present Skin: COMMON NORMALS: no rashes or lesions noted, no jaundice, no petechiae and no mottling GENERAL SKIN EXAM: no rashes or lesions noted Urinary Catheter Management^: Kathleen: Cath Placed During This Visit: yes Reason for Continuing Indwelling Catheter: Accurate Measurement of Urinary Output in Critically Ill Patients Urinary Catheter Date of Insertion: 02/12/20 Urinary Catheter Time of Insertion: 12:49 Data : 02/14/20 03:30 02/13/20 04:30 Micro: Microbiology 02/10/20 15:35 Blood Culture - Preliminary Blood Gram positive cocci 02/11/20 04:18 Urine Culture - Final Urine,Clean Catch A&P Assessment and plan (1) Pneumonia due to COVID-19 virus: -Initially diagnosed with COVID-19 infection about 9 to 10 days prior to presentation, treated symptomatically as an outpatient with deterioration in her respiratory status -Currently on day 08/23 of remdesivir -Continue IV steroids, supportive care including breathing treatments, antitussives as needed, zinc, vitamin C -Decreasing oxygen requirement, currently on 2 L nasal cannula, not oxygen dependent at baseline, home oxygen evaluation prior to discharge if appropriate -Imaging consistent with viral pneumonia -On broad-spectrum IV antibiotic treatment -Influenza negative -blood cx: 2/4 bottles positive for GPC, repeat set ordered. Cultures done at [place] prior to admission here grew Staph epidermidis -hemodynamically stable, afebrile; continue to monitor vital signs -continue to monitor respiratory status -noted inflammatory markers including platelet count -on AC with therapeutic lovenox -venous duplex negative for DVT; V/Q scan as has noted contrast dye allergy Status: Acute (2) Diabetes: -A1c at goal (7.5) -Accuchecks, noted hyperglycemia due to steroids -continue long acting and meal-time insulin -consistent carb diet as tolerated Status: Chronic Qualifiers: Diabetes mellitus complication status: without complication Diabetes mellitus senior living insulin use: with terminal press operator use Diabetes mellitus type: type 2 Qualified Code(s): E11.9 - Type 2 diabetes mellitus without complications; Z 79.4 - group home (current) use of insulin (3) HTN (hypertension): -hemodynamically stable, continue to monitor vital signs -continue oral antihypertensives Status: Chronic Qualifiers: Hypertension type: essential hypertension Qualified Code(s): I10 - Essential (primary) hypertension (4) Hypoxia: -secondary to COVID-19 pneumonia -improving, as noted above Status: Acute Additional A&P Information -Obesity: BMI-30 kg/m2 -DVT ppx not needed as on therapeutic lovenox -GI ppx with PPI -Dispo: home -Code status: FULL code Attestations Medical Necessity Statement*: Patient requires hospitalization for continued treatment of COVID-19 pneumonia, currently completing 5-day course of r emdesivir, with continued need for close monitoring of respiratory status and need for supplemental oxygen. Time Spent in Patient Care: Greater than 35 minutes (>than 50% of time spent in counselling and/or direct pt care on unit) . 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
[2020-02-14] MEDS: ascorbic acid 500 mg Tablet PO (14:37)
[2020-02-14] MEDS: zinc gluconate 50 mg Tablet PO (14:37)
--- NOTE | 2020-02-14 15:00 | PC.NURSE ---
vancomycin vial infusion started leaking around it wasted the one hanging in pyxis and pulled a new vial and saline bag from pyxis. ne one is not leaking.
[2020-02-14] MEDS: dexamethasone 4 mg/mL INJ 6 MG IVP (17:37)
[2020-02-14 17:45] LABS: Glucose Point of Care 274 mg/dL (70-110)
[2020-02-14 20:20] LABS: Glucose Point of Care 349 mg/dL (70-110)
[2020-02-14] MEDS: insulin glargine 100 units/1 mL 15 UNIT SUBCUT (21:25)
[2020-02-14] MEDS: azithromycin 500 MG in sodium chloride 0.9% 250 ML 150 MG IV (21:25)
[2020-02-15] VITALS (24 sets, daily range): BP systolic 131–164; BP diastolic 73–136; PULSE 64–101; RESP 17–26; TEMP 36.4–36.8; O2SAT 90–95
[2020-02-15] MEDS: piperacillin-tazobactam 3.375 GM in sodium chloride 0.9% (plus) 50 ML IV ×3 (02:15→17:48)
[2020-02-15 06:28] LABS: Glucose Point of Care 271 mg/dL (70-110)
[2020-02-15] MEDS: vancomycin 1,000 MG in sodium chloride 0.9% 250 ML 250 MG IV ×3 (07:36→23:30)
[2020-02-15] MEDS: albuterol 8 gm MDI 2 PUFF INHALATION (08:08)
[2020-02-15] MEDS: enoxaparin 80 mg/0.8 mL Syringe SUBCUT (10:11)
[2020-02-15] MEDS: pantoprazole DR 40 mg Tablet PO (10:11)
[2020-02-15] MEDS: ascorbic acid 500 mg Tablet PO (10:11)
[2020-02-15] MEDS: zinc gluconate 50 mg Tablet PO (10:11)
[2020-02-15] MEDS: amlodipine 5 mg Tablet PO (10:11)
--- NOTE | 2020-02-15 10:57 | PM.PN ---
Subjective Subjective: Interval history: Patient seen and examined, resting comfortably in bed, has been up and ambulating around her room this morning, on room air with saturation in the low 90s. Encouraged to ambulate in the hallway with continued monitoring of oxygen levels throughout the day. Feels more energetic and is excited about increased appetite today. Has been able to void since removal of Kathleen catheter, had 2600 mL urine output overnight. Medications: Reviewed: Yes Medication Review Details: Active Medications Generic Name Dose Route Start Last Admin Trade Name Freq PRN Reason Stop Dose Admin Acetaminophen 650 mg 02/10/20 18:12 Tylenol PO Q6H PRN Mild/Mod Pain Or Temp >/= 101 Albuterol Sulfate 2 puff 02/10/20 20:12 02/15/20 08:08 Ventolin INHALATION 2 puff Q4H.RESPIRATORY P RN Administration SHORTNESS OF DEMI TH Albuterol/Ipratrop ium 3 ml 02/12/20 21:47 02/13/20 11:09 Duoneb INHALATION 3 ml Q4H PRN Administration SHORTNESS OF DEMI TH Amlodipine Besylat e 5 mg 02/13/20 09:00 02/15/20 10:11 Norvasc PO 5 mg DAILY MICHAELA Administration Ascorbic Acid 500 mg 02/14/20 12:00 02/15/20 10:11 Vitamin C PO 500 mg DAILY MICHAELA Administration Benzonatate 100 mg 02/11/20 11:47 02/12/20 11:06 Tessalon Pearls PO 100 mg TID PRN Administration COUGH Bisacodyl 10 mg 02/10/20 18:12 Dulcolax PO DAILY PRN CONSTIPATION Budesonide 0.5 mg 02/13/20 08:00 02/15/20 08:09 Pulmicort INHALATION Not Given BID.RESPIRATORY S CH Dexamethasone 6 mg 02/11/20 18:30 02/14/20 17:37 Decadron IVP 6 mg Q24H MICHAELA Administration Dextrose 25 ml 02/10/20 18:26 D50w IVP ONCE PRN hypoglycemia prot ocol Protocol Dextrose 50 ml 02/10/20 18:26 D50w IVP PRN PRN hypoglycemia prot ocol Protocol Enoxaparin Sodium 80 mg 02/13/20 21:00 02/15/20 10:11 Lovenox SUBCUT 80 mg Q12H MICHAELA Administration Glucagon 1 mg 02/10/20 18:26 Glucagen IM ONCE PRN Adult Acute Hypog lycemia Prot. Protocol Guaifenesin/Dextro methorphan 5 ml 02/11/20 11:46 02/12/20 11:08 Robitussin Dm Or al Liq PO 5 ml Q4H PRN Administration COUGH Hydromorphone HCl 2 mg 02/10/20 18:12 Dilaudid Tab PO Q6H PRN SEVERE PAIN Azithromycin 500 m g/ Sodium 250 mls @ 250 mls /hr 02/10/20 19:00 02/14/20 21:25 Chloride IV 150 mls/hr Q24H MICHAELA Administration Protocol Dextrose 500 mls @ 100 mls /hr 02/10/20 18:26 D5w IV ONCE PRN Adult Acute Hypog lycemia Prot Protocol Piperacillin Sod/T azobactam 50 mls @ 12.5 mls /hr 02/10/20 20:00 02/15/20 02:15 Sod 3.375 gm/ So dium Chloride IV 12.5 mls/hr Q8H MICHAELA Administration Protocol Vancomycin HCl 1,0 00 mg/ 250 mls @ 250 mls /hr 02/12/20 07:00 02/15/20 07:36 Sodium Chloride IV 250 mls/hr Q8H MICHAELA Administration Protocol Insulin Aspart 0 unit 02/10/20 21:00 02/15/20 10:39 Novolog SUBCUT 14 unit WM&BEDTIME MICHAELA Administration Protocol Insulin Aspart 7 unit 02/13/20 12:00 02/15/20 10:40 Novolog SUBCUT 7 unit TIDWM MICHAELA Administration Insulin Glargine 15 unit 02/13/20 21:00 02/14/20 21:25 Lantus SUBCUT 15 unit BEDTIME MICHAELA Administration Naloxone HCl 0.1 mg 02/10/20 18:12 Narcan IVP Q2M PRN OPIATERV Ondansetron HCl 4 mg 02/10/20 18:12 Zofran IVP Q8H PRN vomiting, or N/V if npo Pantoprazole Sodiu m 40 mg 02/15/20 09:00 02/15/20 10:11 Protonix PO 40 mg DAILY MICHAELA Administration Fluticasone/Salmet thomas 1 puff 02/11/20 08:00 02/15/20 08:08 Advair Diskus 10 0-50 INHALATION 1 puff BID.RESPIRATORY S CH Administration Zinc Gluconate 50 mg 02/14/20 12:00 02/15/20 10:11 Zinc Gluconate PO 50 mg DAILY MICHAELA Administration povidone-iodine [From Betadine] Adverse Reaction (Mild, Verified 06/28/19 09:56) rash soap [From Betadine] Adverse Reaction (Mild, Verified 06/28/19 09:56) rash Vitals/I&O/Wt Last Vital Signs Temp 98.3 F 02/15/20 04:00 Pulse 101 H 02/15/20 08:13 Resp 17 02/15/20 08:09 BP 149/81 02/14/20 17:00 Pulse Ox 93 02/15/20 08:09 02/14/20 02/15/20 02/15/20 22:59 06:59 14:59 Intake Total 760 / 2500 570 / 3070 Output Total 1530 / 2180 2600 / 4780 Balance -770 / 320 -2030 / -1710 Weight last 48 hrs Weight 79.379 kg Weight 79.464 kg Physical Exam Const: COMMON NORMALS: no acute distress, patient oriented x3 and alert GENERAL APPEARANCE: cooperative and comfortable ORIENTATION/CONSCIOUSNESS: Yes awake OTHER: -in good spirits, very pleasant HENMT: COMMON NORMALS: normocephalic, atraumatic, hearing grossly normal bilaterally and moist oral mucous membranes HEAD & SCALP: normocephalic and atraumatic Eye: COMMON NORMALS: Equal, round and reactive pupils present, EOMs intact bilaterally and conjunctivae normal CONJUNCTIVA: Yes conjunctivae normal PUPIL: Yes Equal, round and reactive pupils present Neck/C-Spine: COMMON NORMALS: full ROM GENERAL: Yes normal visual inspection and Yes trachea midline Resp: COMMON NORMALS: normal respiratory effort, No retractions, No use of accessory muscles and clear to auscultation bilaterally EFFORT & INSPECTION: Yes able to speak in complete sentences, Yes symmetric chest movement and Yes tachypneic AUSCULTATION: clear to auscultation bilaterally and crackles (bases) OTHER: -on RA, saturating in the low 90s with some intermittent desaturation but quick compensation Cardio: COMMON NORMALS: regular rate, regular rhythm, S1 normal heart sound present, S2 normal heart sound present and No murmurs present (Cardio) RATE: regular rate RHYTHM: regular rhythm HEART SOUNDS: S1 normal heart sound present and S2 normal heart sound present GI: COMMON NORMALS: Normal to inspection, nondistended, normoactive bowel sounds present, Soft to palpation and non-tender PALPATION: Yes Soft to palpation Extremity: COMMON NORMALS: normal to inspection, full ROM, no clubbing, cyanosis or edema and no pedal edema Neuro: COMMON NORMALS: patient oriented x3, moves all extremities, no focal motor deficits, no sensory deficits noted and gait normal SENSORIUM/ORIENTATION: Yes alert Psych: COMMON NORMALS: mental status grossly normal, Normal thought process present, cooperative, normal affect and speech normal SPEECH: Yes normal speech THOUGHT PROCESS: Normal thought process present Skin: COMMON NORMALS: no rashes or lesions noted, no jaundice, no petechiae and no mottling GENERAL SKIN EXAM: no rashes or lesions noted Urinary Catheter Management^: Kathleen: Cath Placed During This Visit: yes Reason for Continuing Indwelling Catheter: Accurate Measurement of Urinary Output in Critically Ill Patients Urinary Catheter Date of Insertion: 02/12/20 Urinary Catheter Time of Insertion: 12:49 Data : 02/14/20 03:30 02/13/20 04:30 Micro: Microbiology 02/14/20 13:02 Blood Culture - Preliminary Blood SPECIMEN COLLECTED 02/14/20 13:00 Blood Culture - Preliminary Blood SPECIMEN COLLECTED 02/10/20 15:35 Blood Culture - Preliminary Blood Gram positive cocci A&P Assessment and plan (1) Pneumonia due to COVID-19 virus: -Initially diagnosed with COVID-19 infection about 9 to 10 days prior to presentation, treated symptomatically as an outpatient with deterioration in her respiratory status -s/p 5 days of remdesivir (02/13) -Continue IV steroids, supportive care including breathing treatments, antitussives as needed, zinc, vitamin C -Decreasing oxygen requirement, currently on RA at rest, not oxygen dependent at baseline, home oxygen evaluation prior to discharge if appropriate -Imaging consistent with viral pneumonia -On broad-spectrum IV antibiotic treatment -Influenza negative -blood cx: 2/4 bottles positive for GPC, repeat set ordered. Cultures done at [place] prior to admission here grew Staph epidermidis -hemodynamically stable, afebrile; continue to monitor vital signs -continue to monitor respiratory status -noted inflammatory markers including platelet count -on AC with therapeutic lovenox -venous duplex negative for DVT; V/Q scan as has noted contrast dye allergy Status: Acute (2) Diabetes: -A1c at goal (7.5) -Accuchecks, noted hyperglycemia due to steroids -continue long acting and meal-time insulin -consistent carb diet as tolerated Status: Chronic Qualifiers: Diabetes mellitus type: type 2 Diabetes mellitus exterminator insulin use: with exterminator use Diabetes mellitus complication status: without complication Qualified Code(s): E11.9 - Type 2 diabetes mellitus without complications; 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 (3) HTN (hypertension): -hemodynamically stable, continue to monitor vital signs -continue oral antihypertensives Status: Chronic Qualifiers: Hypertension type: essential hypertension Qualified Code(s): I10 - Essential (primary) hypertension (4) Hypoxia: -secondary to COVID-19 pneumonia -improving, as noted above; weaned to RA Status: Acute Additional A&P Information -Obesity: BMI-30 kg/m2 -DVT ppx not needed as on therapeutic lovenox -GI ppx with PPI -Dispo: home -Code status: FULL code -patient is quite active at baseline, 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 Attestations Medical Necessity Statement*: Patient requires hospitalization for continued treatment of COVID-19 pneumonia. Time Spent in Patient Care: 16 - 35 minutes (>than 50% of time spent in counselling and/or direct pt care on unit). Coding Level of Care Code Acute Manager Delivery for [facility] Fwd Diagnoses Pneumonia due to COVID-19 virus U07.1; J12.89 Diabetes E11.9; Z79.4 Diabetes mellitus type: type 2 Diabetes mellitus half-way insulin use: with exterminator use Diabetes mellitus complication status: without complication HTN (hypertension) I10 Hypertension type: essential hypertension Hypoxia R09.02
[2020-02-15] MEDS: atenolol 50 mg Tablet PO (11:23)
[2020-02-15 11:40] LABS: Glucose Point of Care 397 mg/dL (70-110)
[2020-02-15 16:41] LABS: Glucose Point of Care 325 mg/dL (70-110)
--- NOTE | 2020-02-15 16:43 | PC.NURSE ---
Ambulated PT in spear . O2 sat ranged from 87-90% on room air. PT denied shortness of breath or dizziness. PT states she felt more tired after the walk than she expected. O2 Sat 94% on room air when returned to bed. Dr. Mosquera notified
--- NOTE | 2020-02-15 16:48 | PC.SOCIAL ---
Pg 2 IMM Explained to pt's family, via phone Pg 2 IMM. No questions voiced. Signed, dated, & timed a copy for chart.
[2020-02-15] MEDS: dexamethasone 4 mg/mL INJ 6 MG IVP (17:46)
[2020-02-15 21:08] LABS: Glucose Point of Care 219 mg/dL (70-110)
[2020-02-15] MEDS: azithromycin 500 MG in sodium chloride 0.9% 250 ML 150 MG IV (21:50)
[2020-02-15] MEDS: insulin glargine 100 units/1 mL 15 UNIT SUBCUT (21:50)
[2020-02-15 22:51] LABS: Vancomycin Trough 14.1 ug/mL (10-15)
--- NOTE | 2020-02-15 23:49 | PC.PHAR ---
Vancomycin trough is 14.1. Continue 1gm IVPB every 8 hours.
[2020-02-16] VITALS (15 sets, daily range): BP systolic 125–176; BP diastolic 58–95; PULSE 53–88; RESP 12–25; TEMP 36.8–37.2; O2SAT 86–96
[2020-02-16] MEDS: piperacillin-tazobactam 3.375 GM in sodium chloride 0.9% (plus) 50 ML IV ×2 (03:28→09:44)
[2020-02-16 06:37] LABS: Platelet Count 494 10^3/cmm (130-400)
[2020-02-16 07:46] LABS: Glucose Point of Care 277 mg/dL (70-110)
[2020-02-16] MEDS: atenolol 50 mg Tablet PO (08:08)
[2020-02-16] MEDS: zinc gluconate 50 mg Tablet PO (08:08)
[2020-02-16] MEDS: ascorbic acid 500 mg Tablet PO (08:08)
[2020-02-16] MEDS: vancomycin 1,000 MG in sodium chloride 0.9% 250 ML 250 MG IV (08:09)
[2020-02-16] MEDS: enoxaparin 40 mg/0.4 mL Syringe SUBCUT (08:09)
[2020-02-16] MEDS: pantoprazole DR 40 mg Tablet PO (08:16)
--- NOTE | 2020-02-16 09:33 | PM.DCS ---
Discharge Providers Date of Admission: 02/10/20 17:24 Date of Discharge: February 16, 2020 Attending Provider at Admission: Shay Reagan MD Attending Provider at Discharge: Lili Mosquera MD Consults: None Primary Care Provider: Sonali Bolton MD Diagnoses at Discharge Discharge Diagnosis (1) Pneumonia due to COVID-19 virus: Status: Acute Problem details: -Initially diagnosed with COVID-19 infection about 9 to 10 days prior to presentation, treated symptomatically as an outpatient with deterioration in her respiratory status -s/p 5 days of remdesivir (02/13) -Continue IV steroids, supportive care including breathing treatments, antitussives as needed, zinc, vitamin C -Decreasing oxygen requirement, currently on RA at rest, not oxygen dependent at baseline, qualifies for 2 L NC per home oxygen evaluation -Imaging consistent with viral pneumonia -On broad-spectrum IV antibiotic treatment -Influenza negative -blood cx: / bottles positive for GPC, repeat set ordered. Cultures done at [place] prior to admission here grew Staph epidermidis -hemodynamically stable, afebrile; continue to monitor vital signs -continue to monitor respiratory status -noted inflammatory markers including platelet count -on AC with therapeutic lovenox -venous duplex negative for DVT; has noted contrast dye allergy so no CTA, no V/Q scan as very low suspicion clinically for PE (2) Diabetes: Status: Chronic Problem details: -A1c at goal (7.5) -Accuchecks, noted hyperglycemia due to steroids -continue long acting and meal-time insulin -consistent carb diet as tolerated Qualifiers: Diabetes mellitus complication status: without complication Diabetes mellitus penitentiary insulin use: with penitentiary use Diabetes mellitus type: type 2 Qualified Code(s): E11.9 - Type 2 diabetes mellitus without complications; 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 (3) HTN (hypertension): Status: Chronic Problem details: -hemodynamically stable, continue to monitor vital signs -continue oral antihypertensives Qualifiers: Hypertension type: essential hypertension Qualified Code(s): I10 - Essential (primary) hypertension (4) Hypoxia: Status: Chronic Problem details: -secondary to COVID-19 pneumonia -improving, as noted above; weaned to RA Other Information Additional DC diagnoses/information: -Obesity: BMI-30 kg/m2 Reason for Visit Reason for Visit: COVID + Hospital Course Hospital Course: Patient was admitted to the viral ICU after having been found to be positive for COVID-19 infection. Secondary to her symptoms, disease severity she was started on antiviral treatment as well as empiric antibiotics, supportive care, IV steroids. She has now completed a 5-day course of remdesivir with noted symptomatic improvement in ability to wean her oxygen requirement. She is not oxygen dependent at baseline and is currently on room air x 48 hours. Cultures have been negative, she has been hemodynamically stable, afebrile, had good urine output, tolerating oral intake without difficulty. She has been ambulating with increasing frequency and comfort and is comfortable going home today with assistance provided by family as needed. I have been in contact with her as well as her primary care provider per her request. She is encouraged to continue to recuperate at home with frequent and proper hand hygiene, mask wearing and social distancing particularly when out in the community. She is encouraged to continue to monitor her symptoms and to seek medical attention immediately should she have any worsening symptoms, persistently low oxygen levels, fever. Discharge Summary: -Patient to follow-up with her primary care physician within 1 week Physical Exam Const: COMMON NORMALS: no acute distress, patient oriented x3 and alert GENERAL APPEARANCE: cooperative and comfortable ORIENTATION/CONSCIOUSNESS: Yes awake OTHER: -in good spirits, very pleasant HENMT: COMMON NORMALS: normocephalic, atraumatic, hearing grossly normal bilaterally and moist oral mucous membranes HEAD & SCALP: normocephalic and atraumatic Eye: COMMON NORMALS: Equal, round and reactive pupils present, EOMs intact bilaterally and conjunctivae normal CONJUNCTIVA: Yes conjunctivae normal PUPIL: Yes Equal, round and reactive pupils present Neck/C-Spine: COMMON NORMALS: full ROM GENERAL: Yes normal visual inspection and Yes trachea midline Resp: COMMON NORMALS: normal respiratory effort, No retractions, No use of accessory muscles and clear to auscultation bilaterally EFFORT & INSPECTION: Yes able to speak in complete sentences, Yes symmetric chest movement and Yes tachypneic AUSCULTATION: clear to auscultation bilaterally and crackles (bases) OTHER: -on RA, saturating in the low 90s with some intermittent desaturation but quick compensation Cardio: COMMON NORMALS: regular rate, regular rhythm, S1 normal heart sound present, S2 normal heart sound present and No murmurs present (Cardio) RATE: regular rate RHYTHM: regular rhythm HEART SOUNDS: S1 normal heart sound present and S2 normal heart sound present GI: COMMON NORMALS: Normal to inspection, nondistended, normoactive bowel sounds present, Soft to palpation and non-tender PALPATION: Yes Soft to palpation Extremity: COMMON NORMALS: normal to inspection, full ROM, no clubbing, cyanosis or edema and no pedal edema Neuro: COMMON NORMALS: patient oriented x3, moves all extremities, no focal motor deficits, no sensory deficits noted and gait normal SENSORIUM/ORIENTATION: Yes alert Psych: COMMON NORMALS: mental status grossly normal, Normal thought process present, cooperative, normal affect and speech normal SPEECH: Yes normal speech THOUGHT PROCESS: Normal thought process present Skin: COMMON NORMALS: no rashes or lesions noted, no jaundice, no petechiae and no mottling GENERAL SKIN EXAM: no rashes or lesions noted Urinary Catheter Management^: Kathleen: Cath Placed During This Visit: yes Reason for Continuing Indwelling Catheter: Accurate Measurement of Urinary Output in Critically Ill Patients Urinary Catheter Date of Insertion: 02/12/20 Urinary Catheter Time of Insertion: 12:49 Discharge Data Data Completed and Pending: Completed Studies During Hospitalization Category Date Time Status CT chest wo con 7 1250 Urgent Cat Scan 02/10/20 18:10 Completed XR chest 1V sondra ble [id number] Routine Exams 02/13/20 12:59 Completed XR chest 1V sondra ble [id number] Stat Exams 02/10/20 15:14 [place] [id number] Stat Ultrasound 02/13/20 16:43 Completed Pending at discharge Category Date Time Status Blood Culture Sta t Lab 02/10/20 15:35 Results Blood Culture Sta t Lab 02/14/20 13:02 Results Sputum Culture Ro utine Lab 02/10/20 18:23 Uncollected Labs from last 24 hours 02/16/20 02/16/20 02/15/20 07:41 03:50 22:00 Plt Count 494 H POC Glucose 277 Vancomycin Trough 14.1 02/15/20 02/15/20 02/15/20 21:02 16:36 10:26 Plt Count POC Glucose 219 325 397 Vancomycin Trough Vitals: Last Vital Signs Temp 98.9 F 02/16/20 08:00 Pulse 85 02/16/20 09:27 Resp 18 02/16/20 09:27 BP 151/83 02/16/20 09:00 Pulse Ox 96 02/16/20 09:27 Discharge Plan Discharge Patient Disposition: Home Condition: Stable Prescriptions: New Vitamin C 500 mg Tablet 500 mg PO DAILY Qty: 30 RF: 0 zinc gluconate 50 mg Tablet 50 mg PO DAILY Qty: 30 RF: 0 Advair Diskus 100-50 mcg/dose Blister With Device 1 puff inhalation BID.RESPIRATORY Qty: 60 RF: 0 prednisone 20 mg tablet See Rx Instructions .ROUTE .COMPLEX 6 Days Qty: 18 RF: 0 azithromycin 500 mg tablet 500 mg PO DAILY 5 Days Qty: 5 RF: 0 Continued Altace 10 mg Capsule 10 mg PO DAILY RF: 0 metformin 1,000 mg Tablet 1,000 mg PO BID RF: 0 atenolol 50 mg Tablet 50 mg PO DAILY RF: 0 Lantus U-100 Insulin 100 unit/mL Solution 20 unit SUBCUT BID RF: 0 hydrochlorothiazide 25 mg Tablet 25 mg PO DAILY RF: 0 Discharge Orders: Discharge Order (Routine); Ordered 02/16/20 Ordered By: Lili Mosquera Other Ambulatory Orders: DME: Oxygen (Order) Location: None Selected Ordered By: Lili Mosquera [place] [facility] [place] [facility] [place] Sonali Bolton MD [Primary Care Provider] - 4-7 days (Post hospital discharge follow up. Treated for COVID-19 pneumonia with remdesevir, IV steroids. ) Discharge Diet: Diabetic Discharge Activity: Increase activity as tolerated Activity Restrictions/Additional Instructions: -Please continue to monitor your symptoms at home including temperature, oxygen levels. If noted fever, low oxygen levels (<88% without use of oxygen), or experiencing worsening symptoms, please seek medical attention immediately -Please continue proper and frequent hand washing, mask wearing, social distancing and self isolation -Please consider donation of convalescent plasma after recovery as your body has developed antibodies to the coronavirus. Discharge Attestations Time Spent in Discharge Care*: greater than 30 min Specific Discharge Activities: Specific discharge activities: educating patient, educating and/or supporting family/caregiver, discussing with pcp/other providers, discussing with correctional casework specialist/social workers/dc planners, documenting/other paperwork and evaluating patient/reviewing data Status at Discharge: Cognitive status at discharge: cognitively intact, Behavioral status at discharge: cooperative and independent in ADL's, Functional status at discharge: independent ambulation Overall status at discharge: patient is progressing back to baseline Quality Metrics Clinical Quality Measures During this hospital stay, did patient experience: None Coding Level of Care Code Acute Powerhouse Electrician for [facility] Fwd Exam Comprehensive Diagnoses Pneumonia due to COVID-19 virus U07.1; J12.89 Diabetes E11.9; Z79.4 Diabetes mellitus complication status: without complication Diabetes mellitus medical terminologist insulin use: with medical terminologist use Diabetes mellitus type: type 2 HTN (hypertension) I10 Hypertension type: essential hypertension Hypoxia R09.02
[2020-02-16 11:38] LABS: Glucose Point of Care 303 mg/dL (70-110)
--- NOTE | 2020-02-18 13:48 | PC.SOCIAL ---
Attempted to call patient, her voicemail box is full and this sign writer hand was not able to leave a message, will try back at another time.
== END 2020-02-16 14:43 | disposition home or self-care (01) | DRG 177 ==
LOC: ER 17:55 → MEDSURG 18:15 → ICU 02-12 11:06
PROVIDERS: Family Medicine; Admitting Provider Internal Medicine; Family Provider Internal Medicine; PCP Internal Medicine; Visit Provider Family Medicine
DX: U07.1 COVID-19 (principal); J12.89 Other viral pneumonia; J96.01 Acute respiratory failure with hypoxia; E11.9 Type 2 diabetes mellitus without complications; I10 Essential (primary) hypertension; R55 Syncope and collapse; Z79.4 Long term (current) use of insulin; E66.09 Other obesity due to excess calories; Z68.30 Body mass index [BMI] 30.0-30.9, adult
CPT/HCPCS: 12345; 36415; 36416; 36569; 36592; 36600; 51702; 71045; 71250; 80051; 80053; 80202; 81003; 82550; 82728; 82810; 82962; 83605; 83615; 83735; 83880; 83986; 84100; 84145; 84443; 84484; 85025; 85049; 85378; 85384; 85610; 85730; 86140; 87040; 87077; 87086; 87205; 87804; 93005; 93970; 94640; 96372; 96375; 99283; C9113; J0456; J1100; J1644; J1650; J1815 ×2; J1940; J2543; J3370; J3535; J7050; J7626

== ENCOUNTER 2020-04-25 08:07 | Outpatient (CLI) | payer MEDICARE, SELFPAY ==
--- NOTE | 2020-04-25 08:33 | MM_ITS ---
WS: [id number] BILATERAL DIGITAL SCREENING MAMMOGRAPHY WITH CAD CLINICAL INFORMATION: SCREENING HISTORY: Screening mammogram. No current complaints. COMPARISON: [id number] TECHNIQUE: Bilateral CC and MLO views. FINDINGS: Scattered fibroglandular densities bilaterally. No suspicious focal mass, asymmetry, calcifications, or architectural distortion. No evidence of malignancy. Stable punctate calcifications. MM/[place] [id number] IMPRESSION: BI-RADS: 2-Benign FOLLOW UP: 1 Year Follow-up Recommend return to annual screening mammography.
== END 2020-04-25 08:08 | disposition home or self-care (01) ==
LOC: RADSHAW 08:12
PROVIDERS: Family Provider Internal Medicine; PCP Internal Medicine; Visit Provider Internal Medicine
DX: Z12.31 Encounter for screening mammogram for malignant neoplasm of breast (principal)
CPT/HCPCS: 77067

== ENCOUNTER → 2020-05-08 13:15 | Outpatient (BNVA) | payer MEDICARE, SELFPAY | PROVIDERS: Family Provider Internal Medicine; PCP Internal Medicine; Visit Provider Dermatology | DX: E11.65 Type 2 diabetes mellitus with hyperglycemia (principal); E78.5 Hyperlipidemia, unspecified; I10 Essential (primary) hypertension | CPT/HCPCS: 80053; 80061; 83036; 85025 ==

== ENCOUNTER → 2020-09-28 09:20 | Outpatient (BNVA) | payer MEDICARE, SELFPAY | PROVIDERS: Family Provider Internal Medicine; PCP Internal Medicine; Visit Provider Internal Medicine | DX: E11.9 Type 2 diabetes mellitus without complications (principal); E78.5 Hyperlipidemia, unspecified | CPT/HCPCS: 80053; 80061; 82043; 83036; 85025 ==

== ENCOUNTER → 2021-01-01 09:14 | Outpatient (BNVA) | payer MEDICARE, SELFPAY | PROVIDERS: Family Provider Internal Medicine; PCP Internal Medicine; Visit Provider Internal Medicine | DX: E11.9 Type 2 diabetes mellitus without complications (principal); I10 Essential (primary) hypertension; E78.5 Hyperlipidemia, unspecified | CPT/HCPCS: 36415; 80053; 80061; 83036; 84443; 85025 ==

== ENCOUNTER → 2021-04-27 09:12 | Outpatient (BNVA) | payer MEDICARE, SELFPAY | PROVIDERS: Family Provider Internal Medicine; PCP Internal Medicine; Visit Provider Internal Medicine | DX: E11.9 Type 2 diabetes mellitus without complications (principal); E78.5 Hyperlipidemia, unspecified | CPT/HCPCS: 80053; 83036; 85025 ==

== ENCOUNTER → 2021-08-08 09:51 | Outpatient (BNVA) | payer MEDICARE, SELFPAY | PROVIDERS: Family Provider Internal Medicine; PCP Internal Medicine; Visit Provider Internal Medicine | DX: E11.65 Type 2 diabetes mellitus with hyperglycemia (principal); E55.9 Vitamin D deficiency, unspecified; E78.5 Hyperlipidemia, unspecified | CPT/HCPCS: 80053; 80061; 82306; 83036; 85025 ==

== ENCOUNTER 2021-09-21 07:49 | Outpatient (CLI) | payer MEDICARE, SELFPAY ==
--- NOTE | 2021-09-21 07:56 | MM_ITS ---
WS: [id number] BILATERAL 3D TOMOSYNTHESIS DIGITAL SCREENING MAMMOGRAPHY WITH CAD CLINICAL INFORMATION: SCREENING HISTORY: Screening mammogram. No current complaints. COMPARISON: April 25, 2020 TECHNIQUE: Bilateral CC and MLO views. FINDINGS: Scattered fibroglandular densities bilaterally. Incidental punctate calcifications. No suspicious foc al mass, asymmetry, calcifications, or architectural distortion. No evidence of malignancy. MM/[place] [id number] IMPRESSION: BI-RADS: 2-Benign FOLLOW UP: 1 Year Follow-up Recommend return to annual screening mammography.
== END 2021-09-21 07:50 | disposition home or self-care (01) ==
LOC: RAD 07:49
PROVIDERS: Family Provider Internal Medicine; PCP Internal Medicine; Visit Provider Internal Medicine
DX: Z12.31 Encounter for screening mammogram for malignant neoplasm of breast (principal)
CPT/HCPCS: 77063; 77067

== ENCOUNTER → 2021-12-14 14:19 | Outpatient (BNVA) | payer MEDICARE, SELFPAY | PROVIDERS: Family Provider Internal Medicine; PCP Internal Medicine; Visit Provider Internal Medicine | DX: E11.65 Type 2 diabetes mellitus with hyperglycemia (principal); E55.9 Vitamin D deficiency, unspecified | CPT/HCPCS: 80053; 82306; 83036; 85025 ==

== ENCOUNTER → 2022-03-07 10:00 | Outpatient (BNVA) | payer MEDICARE, SELFPAY | PROVIDERS: Family Provider Internal Medicine; PCP Internal Medicine; Visit Provider Internal Medicine | DX: E11.65 Type 2 diabetes mellitus with hyperglycemia (principal); I10 Essential (primary) hypertension; E78.5 Hyperlipidemia, unspecified; N28.89 Other specified disorders of kidney and ureter; E11.9 Type 2 diabetes mellitus without complications | CPT/HCPCS: 80053; 80061; 82043; 85025 ==

== ENCOUNTER → 2022-03-11 10:00 | Outpatient (BNVA) | payer MEDICARE, SELFPAY | PROVIDERS: Family Provider Internal Medicine; PCP Internal Medicine; Visit Provider Internal Medicine | DX: E11.65 Type 2 diabetes mellitus with hyperglycemia (principal); I10 Essential (primary) hypertension; E78.5 Hyperlipidemia, unspecified; N28.89 Other specified disorders of kidney and ureter; E11.9 Type 2 diabetes mellitus without complications | CPT/HCPCS: 82043 ==

== ENCOUNTER → 2022-03-13 07:59 | Outpatient (BNVA) | payer MEDICARE, SELFPAY | PROVIDERS: Family Provider Internal Medicine; PCP Internal Medicine; Visit Provider Internal Medicine | DX: E11.65 Type 2 diabetes mellitus with hyperglycemia (principal); I10 Essential (primary) hypertension; E78.5 Hyperlipidemia, unspecified; N28.89 Other specified disorders of kidney and ureter; E11.9 Type 2 diabetes mellitus without complications | CPT/HCPCS: 83036 ==

== ENCOUNTER → 2022-08-14 11:08 | Outpatient (BNVA) | payer MEDICARE, SELFPAY | PROVIDERS: Family Provider Internal Medicine; PCP Internal Medicine; Visit Provider Internal Medicine | DX: N28.89 Other specified disorders of kidney and ureter (principal); E11.65 Type 2 diabetes mellitus with hyperglycemia; Z79.899 Other long term (current) drug therapy | CPT/HCPCS: 80053; 80061; 83036; 85025 ==

== ENCOUNTER → 2023-07-18 12:30 | Outpatient (BNVA) | payer MEDICARE, SELFPAY | PROVIDERS: Family Provider Internal Medicine; PCP Internal Medicine; Visit Provider Internal Medicine | DX: R00.2 Palpitations (principal); I49.1 Atrial premature depolarization; I49.3 Ventricular premature depolarization; I47.10 Supraventricular tachycardia, unspecified | CPT/HCPCS: 93242 ==

== ENCOUNTER 2023-11-05 09:20 | Outpatient (CLI) | payer MEDICARE, SELFPAY ==
--- NOTE | 2023-11-05 09:20 | MM_ITS ---
WS: [id number] BILATERAL SCREENING DIGITAL TOMOSYNTHESIS MAMMOGRAM WITH CAD HISTORY: SCREENING COMPARISON: 09/21/2021, 04/25/2020 Bilateral CC and MLO views with tomosynthesis and synthetic mammography submitted. Computer aided det ection analyzed. Breast composition: There are scattered areas of fibroglandular density. No suspicious masses, microc alcifications or architectural distortion. Benign calcifications. MM/[place] [id number] IMPRESSION: BI-RADS: 2-Benign FOLLOW UP: 1 Year Follow-up
== END 2023-11-05 09:21 | disposition home or self-care (01) ==
PROVIDERS: Family Provider Internal Medicine; PCP Internal Medicine; Visit Provider Internal Medicine
DX: Z12.31 Encounter for screening mammogram for malignant neoplasm of breast (principal); R92.323 Mammographic fibroglandular density, bilateral breasts; R92.1 Mammographic calcification found on diagnostic imaging of breast
CPT/HCPCS: 77063; 77067

== ENCOUNTER 2025-02-01 11:03 | Outpatient (CLI) | payer MEDICARE, SELFPAY ==
--- NOTE | 2025-02-01 11:00 | MM_ITS ---
WS: [id number] BILATERAL 3D TOMOSYNTHESIS DIGITAL SCREENING MAMMOGRAPHY WITH CAD CLINICAL INFORMATION: SCREENING HISTORY: Screening mammogram. No current complaints. COMPARISON: 2023 TECHNIQUE: Bilateral CC and MLO views. FINDINGS: Scattered fibroglandular densities bilaterally. No suspicious focal mass, asymmetry, calcifications, or architectural distortion. No evidence of malignancy. A few incidental punctate calcifications. MM/MM scr tomosynthesis [id number] IMPRESSION: DENSITY: There are scattered areas of fibroglandular density. BI-RADS: 2 - Benign. FOLLOW UP: 1 Year Follow-up Recommend return to annual screening mammography.
== END 2025-02-01 11:04 | disposition home or self-care (01) ==
LOC: MOBLMAM 11:09
PROVIDERS: Family Provider Internal Medicine; PCP Internal Medicine; Visit Provider Internal Medicine
DX: R92.323 Mammographic fibroglandular density, bilateral breasts (principal); Z12.31 Encounter for screening mammogram for malignant neoplasm of breast
CPT/HCPCS: 77063; 77067